=== PATIENT | female | born 1950 | race Caucasian/White ===

== ENCOUNTER 2020-10-14 12:12 | Emergency (ER) | payer MEDICARE, OTHER, SELFPAY ==
[2020-10-14 12:20] VITALS: BP 125/53; PULSE 59; RESP 20; TEMP 36.8; O2SAT 100
[2020-10-14 12:35] VITALS: BP 125/53; PULSE 59; RESP 20; TEMP 36.8; O2SAT 100
--- NOTE | 2020-10-14 12:35 | ED.FEMALEGU ---
HPI - Female Genitourinary General Chief complaint: Urogenital-Female Stated complaint: poss uti Time Seen by Provider: 10/14/20 12:40 Source: patient, RN notes reviewed and old records reviewed Mode of arrival: ambulatory Limitations: no limitations History of Present Illness HPI Narrative: 70 year old female presents to [facility] with complaints of painful urination, urinary frequency and decreased output since Sunday. Patient reports that she has been taking Pyridium for her dysuria without resolution in her symptoms. Patient denies any supra pubic pain or any CVA tenderness. She states no known fevers, chills or sweats. reports no vaginal discharge or any vaginal itching, no concern for STD exposure. Patient reports past history of urinary tract infections. MD elicited complaint: dysuria, UTI and other (frequency with decreased output) Related Data Home Medications Medication Instructions Recorded Confirmed amlodipine 10/14/20 atenolol 10/14/20 buspirone mg 10/14/20 calcitriol 10/14/20 cetirizine mg 10/14/20 conjugated estrogens [Premarin] mg 10/14/20 eszopiclone mg 10/14/20 lisinopril 10/14/20 methocarbamol mg 10/14/20 oxycodone-acetaminophen 10/14/20 Allergies Allergy/AdvReac Type Severity Reaction Status Date / Time cephalexin Allergy Unknown Unknown Verified 10/14/20 12:29 erythromycin base Allergy Unknown Unknown Verified 10/14/20 12:29 nitrofurantoin Allergy Unknown anaphylactic Verified 02/16/17 21:20 reaction Penicillins Allergy Unknown Unknown Verified 10/14/20 12:29 pentazocine Allergy Unknown Unknown Verified 10/14/20 12:29 propoxyphene Allergy Unknown Unknown Verified 10/14/20 12:29 NICKELSULFATE Allergy Unknown Unknown Uncoded 10/14/20 12:29 Review of Systems Review of Systems: CONSTITUTIONAL: Denies fever, chills, or sweats. EYES: Denies visual changes, redness, or discharge. ENT: Denies rhinorrhea, congestion, sore throat, or otalgia. CARDIOVASCULAR: Denies chest pain, palpitations, or edema. RESPIRATORY: Denies cough or dyspnea. GASTROINTESTINAL: Denies abdominal pain, nausea, vomiting, or diarrhea. GENITOURINARY: Positive dysuria or hematuria. SKIN: Denies rash or itching. MUSCULOSKELETAL: Denies back pain, joint pain, or myalgia. NEUROLOGIC: Denies headache, numbness, or weakness. PSYCHIATRIC: Positive history of anxiety or depression. All systems reviewed & are unremarkable except as noted in HPI and below PMFSH Past Medical History Medical History (Updated 10/16/20 @ 08:50 by Ivanna Mc NP) Fracture of right ankle Hyperlipidemia Hypertension Osteoporosis Post-menopausal UTI (urinary tract infection) Surgical History Surgical History (Updated 10/16/20 @ 08:44 by Ivanna Mc NP) History of hysterectomy History of lumbar fusion Hx of cholecystectomy Family History Family History Mother Hypertension Cerebrovascular accident Family history of coronary artery disease Grandparent Family history of malignant neoplasm of breast Father Family history of coronary artery disease Other Diabetes mellitus Family history of alcoholism Family history of anemia Family history of blood dyscrasia Family history of cardiovascular disease Family history of chronic obstructive pulmonary disease Family history of congestive heart failure Family history of osteoporosis Social History Social History (Updated 10/16/20 @ 08:43 by Ivanna Mc NP) Smoking status: Never smoker Second hand tobacco smoke exposure: No Alcohol intake: never Substance use: never Living arrangements: with family Gender identity (if verbalized by the patient): Female Comments At time of signature, agree with nursing past medical, surgical, social and family history. There is no relevant family history pertinent to the presenting complaint Exam Narrative: GENERAL: Well-appearing
== END 2020-10-14 13:12 | disposition home or self-care (01) ==
PROVIDERS: Emergency Provider Registered Nurse
DX: N39.0 Urinary tract infection, site not specified (principal); E78.5 Hyperlipidemia, unspecified; I10 Essential (primary) hypertension; M81.0 Age-related osteoporosis without current pathological fracture
CPT/HCPCS: 81003; 87077; 87086; 87186; 99203; G0463

== ENCOUNTER 2020-11-16 10:36 | Emergency (ER) | payer MEDICARE, OTHER, SELFPAY ==
[2020-11-16 10:42] VITALS: BP 138/67; PULSE 82; RESP 18; TEMP 36.9; O2SAT 99
--- NOTE | 2020-11-16 11:14 | ED.URI ---
HPI - URI/Sore Throat General Chief Complaint: Upper Respiratory Infection Stated Complaint: Congestion Time Seen by Provider: 11/16/20 11:05 Source: patient and RN notes reviewed Mode of arrival: ambulatory Limitations: no limitations History of Present Illness HPI Narrative: Patient presents today complaining of 3-day history of nasal congestion, fatigue, facial pressure. Patient is, I need something for my facial pressure. Denies cough, fever, sore throat, ear pain. She has been taking Tylenol Cold and flu with some mild relief. States her symptoms have been improving since onset. She had COVID-19 in February. MD elicited complaint: nasal congestion and sinus pain Related Data Home Medications Medication Instructions Recorded Confirmed atenolol 25 mg PO DAILY 10/14/20 11/16/20 cetirizine 10 mg PO DAILY 10/14/20 11/16/20 eszopiclone 3 mg PO DAILY 10/14/20 11/16/20 lisinopril 40 mg PO DAILY 10/14/20 11/16/20 oxycodone-acetaminophen 1 tablet PO Q4H PRN 10/14/20 11/16/20 conjugated estrogens [Premarin] 0.9 mg PO DAILY 11/16/20 11/16/20 cyclobenzaprine 10 mg PO TID PRN 11/16/20 11/16/20 Allergies Allergy/AdvReac Type Severity Reaction Status Date / Time cephalexin Allergy Unknown Unknown Verified 11/16/20 11:04 erythromycin base Allergy Unknown Unknown Verified 11/16/20 11:04 nitrofurantoin Allergy Unknown anaphylactic Verified 11/16/20 11:04 reaction Penicillins Allergy Unknown Unknown Verified 11/16/20 11:04 pentazocine Allergy Unknown Unknown Verified 11/16/20 11:04 propoxyphene Allergy Unknown Unknown Verified 11/16/20 11:04 NICKELSULFATE Allergy Unknown Unknown Uncoded 10/14/20 12:29 Review of Systems Review of Systems: CONSTITUTIONAL: Denies body aches, fever, chills, or sweats.+ Fatigue EYES: Denies visual changes, redness, or discharge. ENT: Denies rhinorrhea, sore throat, or otalgia.+ Congestion, facial pressure CARDIOVASCULAR: Denies chest pain, palpitations, or edema. RESPIRATORY: Denies cough or dyspnea. GASTROINTESTINAL: Denies abdominal pain, nausea, vomiting, or diarrhea. GENITOURINARY: Denies dysuria or hematuria. SKIN: Denies rash, itching, or wounds. MUSCULOSKELETAL: Denies back pain, joint pain, or myalgia. NEUROLOGIC: Denies headache, numbness, tingling, or weakness. PSYCH: Denies depression or anxiety. [facility] Past Medical History Medical History (Updated 11/16/20 @ 20:01 by Aleyda Jones, [facility], ) COVID-19 Fracture of right ankle Hyperlipidemia Hypertension Osteoporosis Post-menopausal UTI (urinary tract infection) Surgical History Surgical History (Updated 10/16/20 @ 08:44 by Ivanna Mc NP) History of hysterectomy History of lumbar fusion Hx of cholecystectomy Family History Family History Mother Hypertension Cerebrovascular accident Family history of coronary artery disease Grandparent Family history of malignant neoplasm of breast Father Family history of coronary artery disease Other Diabetes mellitus Family history of alcoholism Family history of anemia Family history of blood dyscrasia Family history of cardiovascular disease Family history of chronic obstructive pulmonary disease Family history of congestive heart failure Family history of osteoporosis Social History Social History (Updated 10/16/20 @ 08:43 by Ivanna Mc NP) Smoking status: Never smoker Second hand tobacco smoke exposure: No Alcohol intake: never Substance use: never Gender identity (if verbalized by the patient): Female Comments At time of signature, I have reviewed and agree with nursing past medical, surgical, social and family history unless otherwise noted. Please see nursing chart for further information. There is no relevant family history pertinent to the presenting complaint Exam Narrative: GENERAL: Well-appearing, well-nourished, and in no acute distress. HEAD: N
== END 2020-11-16 11:18 | disposition home or self-care (01) ==
PROVIDERS: Emergency Provider Nurse Practitioner
DX: J32.9 Chronic sinusitis, unspecified (principal); E78.5 Hyperlipidemia, unspecified; I10 Essential (primary) hypertension; M81.0 Age-related osteoporosis without current pathological fracture; Z86.16 Personal history of COVID-19
CPT/HCPCS: 99211; G0463

== ENCOUNTER 2024-08-27 09:54 | Emergency (ER) | payer MEDICARE, OTHER, SELFPAY ==
[2024-08-27 10:00] VITALS: BP 163/79; PULSE 97; RESP 16; TEMP 36.8; O2SAT 97
--- OUTSIDE RECORDS SUMMARY | 2024-08-27 10:04 | XMS_ITS | Continuity of Care Document ---
Author Organization [facility] Address [address] [place] [address] Phone Care Team Providers Care Liver Trimmer Name Role Phone Kasia RANGEL MD, Marcelo Dunn Unavaila ble Advance Directives Directive Yes / No Effective Date File Name No Information Encounters Encounter Description Practice Location Reason(s) For Visit Diagnoses Date Provider Providers Copied on Encounter [facility], [address], [id number], [place] tel:[phone] [facility] No Information Kasia Carr er. [address], [address] [facility] [address] [facility] [address], [place], [place], [id number] , [place]. tel: [phone] Family History Family Member Type Diagnosis Age At Onset No Information Payers Payer name Insurance type Covered libertarian ID Authoriza tion(s) No Information Social History Type Description Quantity Date Captured Comments Sex Female Smoking Status No Information Chief Complaint And Reason For Visit No Information Reason For Referral Reason For Referral No Information History Of Present Illness Encounter Date Complaint History Of Prese nt Illness No Information Functional Status Date Functional Assessmen t No Information Instructions Date Instruction Additional Infor mation No Information Assessments Type Assessment Date No Information Patient Care Teams Name Effective Dates (start - stop) Status Members No Information
--- OUTSIDE RECORDS SUMMARY | 2024-08-27 10:04 | XMS_ITS | Clinical Summary ---
Author Organization [facility] Address [address] [place] [address] Care Team Providers Care Continuous Mining Operator Name Role Phone Padmini Irby APN, SLEEVE SETTER Primary Care Provider Padmini Irby APN, SLEEVE SETTER Unavailable [phone] Allergies Active Allergy Reactions Criticality Noted Date Comments Cephalexin Hives,Other (see Comments) High 06/30/2019 Propoxyphene Unknown 11/20/2018 Erythromycin Unknown 11/20/2018 Nitrofurantoin Hives,Shortness of Breath High 12/29/2019 Penicillins Rash 11/20/2018 Rash,hives, Pineapple Swelling High 06/14/2018 Pentazocine Other (see Comments) Low 12/29/2019 Reaction: Muscle Spasm, Medications furosemide (LASIX) 40 MG Tablet Take 40 mg by mouth daily. Active amLODIPine (NORVASC) 2.5 MG Tablet Take 10 mg by mouth daily. Active calcitRIOL (ROCALTROL) 0.25 MCG Capsule Take 0.25 mcg by mouth daily. Active estrogens, conjugated, (PREMARIN) 0.9 MG Tablet Take 0.9 mg by mouth daily. Active lisinopril (PRINIVIL, ZESTRIL) 40 MG Tablet Take 40 mg by mouth daily. Active methadone (DOLOPHINE) 10 MG Tablet Take 10 mg by mouth every 4 hours as needed. Active Cyclobenzaprine HCl (FLEXERIL PO) Take by mouth. Activ e ciclopirox (PENLAC) 8 % Solution Apply a thin even layer over the nail once daily 6.6 mL 3 0 Active Additional Information Patient not taking.Reported on 12/29/2019 Active Problems No known active problems Family History Relation Name Status Comments Father heart disease Maternal Grandfather Maternal Grandmother Mother heart disease Paternal Grandfather Paternal Grandmother Social History Tobacco Use Types Packs/Day Years Used Date Smoking Tobacco: Never Smokeless Tobacco: Never Alcohol Use Standard Drinks/Week Comments Not Currently 0 (1 standard drink = 0.6 oz pur e alcohol) Comments No Sex and Gender Information Value Date Recorded Sex Assigned at Not on file Legal Sex Female 11:47 PM CDT Gender Identity Not on file Sexual Orientation Not on file Last Filed Vital Signs Vital Sign Reading Time Taken Comments Blood Pressure 134/72 12/29/2019 10:09 AM ENGINEER EXHAUSTER Pulse 92 12/29/2019 10:09 AM ENGINEER EXHAUSTER Temperature 36.2 C (97.1 F) 12/29/2019 10:09 AM ENGINEER EXHAUSTER Respiratory Rate 16 12/29/2019 10:09 AM ENGINEER EXHAUSTER Oxygen Saturation 98% 12/29/2019 10:09 AM ENGINEER EXHAUSTER Inhaled Oxygen Concentration - - Weight 50.9 kg (112 lb 4.8 oz) 12/29/2019 10:09 AM ENGINEER EXHAUSTER Height 160 cm (5' 3) 12/29/2019 10:09 AM ENGINEER EXHAUSTER Body Mass Index 19.89 12/29/2019 10:09 AM ENGINEER EXHAUSTER Plan of Treatment Health Maintenance Due Date Last Done Comments Hepatitis C Virus (HCV) Screening 1950 TdaP Immunization 1950 Cologuard 09/05/1995 Immunochemical Fecal Occult Blood 09/06/2019 09/05/2018 SARS-COV-2 Immunization ( season) 2023 02/10/2021, 01/13/2021 Influenza Immunization (#1) 2024 Respiratory Syncytial Virus (RSV) Immunization (Adult) (1 - 1-dose 75+ series) 2025 Colonoscopy 12/11/2028 12/11/2018 Colorectal Cancer Screening 12/11/2028 DEXA Bone Density Discontinued 07/22/2015 Mammogram Discontinued 07/22/2015 Zoster Immunization Completed 06/18/2018, 06/07/2018, 11/15/2017, Additional history exists Pneumococcal Immunization (50+ years) Completed 10/06/2019, 08/12/2016, 02/13/2012 Pneumococcal Immunization Combined Discontinued 10/06/2019, 08/12/2016, 02/13/2012 Hepatitis B Immunization Aged Out No longer eligible based on patient's age to complete this topic Human Papillomavirus (HPV) Immunization Aged Out No longer eligible based on patient's age to complete this topic Meningococcal Immunization (ACWY) Aged Out No longer eligible based on patient's age to complete this topic Rotavirus Immunization Aged Out No lo nger eligible based on patient's age to complete this topic Procedures Procedure Name Priority Date/Time Associated Diagnosis Comments [facility] BONE DENSITOMETRY AXIAL SKELETON Routine 07/22/2015 9:47 AM CDT Osteoporosis [facility] SCREENING BILATERAL DIGITAL W CAD Routine 07/22/2015 9:16 AM CDT Visit for screening mammogram from Last 3 Months or Most Recently Relevant to Health Maintenance Results * [facility] BONE DENSITOMETRY AXIAL SKELETON (07/22/2015 9:47 AM CDT) Anatomical Region Laterality Modality BODY N/A Other 07/22/2015 12:5 7 PM CDT Impressions 07/22/2015 1:00 PM CDT IMPRESSION: Low bone mass which is not statistically changed since the prior study. Bone mineral density: Normal (T-score above or = -1.0) Low bone mass (T-score between -1.0 and -2.5) replaces the previously used term osteopenia Osteoporosis (T-score = or below -2.5) Medical evaluation for secondary causes of low bone mineral density may be appropriate. FRAX is a World Health Organization validated fracture risk assessment tool that calculates a person's 10 year probability of a major osteoporosis related fracture and hip fracture. According to the National Osteoporosis Foundation guidelines, postmenopausal women and men age 50 or older with low bone mass and a 10 year probability of a major osteoporosis related fracture = or greater than 20% or a 10 year probability of a hip fracture = or greater than 3% should be considered for treatment. For further information, including treatment recommendations, please refer to the 2013 ISCD Official Positions (http://www.iscd.org) and the NOF's Clinician's Guide to Prevention and Treatment of Osteoporosis (http://www.nof.org/professionals/clinical-guidelines) Narrative 07/22/2015 1:00 PM CDT EXAMINATION: DXA Bone Density HISTORY: 65 year old postmenopausal female with given history of menopause at age 38. Current Height: 65 inches Maximum Height: 65 inches Weight: 1 out of 3 pounds RISK FACTORS: Left hip and ankle fracture and left wrist fracture from trauma. Frontal history of hip fracture. 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 No history of joint arthritis, glucocorticoid use, smoking or parts counterman antacid use. 2 falls in the past year. 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 (S/N [id number]) FINDINGS: Forearm: BMD in the radius 33% is 0.85 g/yp3U-znirs is 0.0 Left Hip Current Total BMD is 0.708 g/uv8D-trdom is -2.4 Most recent prior Total BMD was 0.702 g/cm2 There has been a 0.9% increased in BMD which is not statistically significant. Current femoral neck BMD is 0.734 g/ku4T-oyiju is -2.2 THIS IS AN ELECTRONICALLY VERIFIED REPORT 07/22/2015 12:57 PM: Tee Dinero M.D. Radiologist JACQUELINE:jacqueline IWONA Procedure Note Diego Cabral MD - 07/22/2015 EXAMINATION: DXA Bone Density HISTORY: 65 year old postmenopausal female with given history of menopause at age 38. Current Height: 65 inches Maximum Height: 65 inches Weight: 1 out of 3 pounds RISK FACTORS: Left hip and ankle fracture and left wrist fracture from trauma. Frontal history of hip fracture. 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 No history of joint arthritis, glucocorticoid use, smoking or parts counterman antacid use. 2 falls in the past year. 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 Current femoral neck BMD is 0.734 g/aj4F-fvjar is -2.2 THIS IS AN ELECTRONICALLY VERIFIED REPORT 07/22/2015 12:57 PM: Tee Dinero M.D. Radiologist JACQUELINE:jacqueline IWONA IMPRESSION: Low bone mass which is not statistically changed since the prior study. Bone mineral density: Normal (T-score above or = -1.0) Low bone mass (T-score between -1.0 and -2.5) replaces the previously used term osteopenia Osteoporosis (T-score = or below -2.5) Medical evaluation for secondary causes of low bone mineral density may be appropriate. FRAX is a World Health Organization validated fracture risk assessment tool that calculates a person's 10 year probability of a major osteoporosis related fracture and hip fracture. According to the National Osteoporosis Foundation guidelines, postmenopausal women and men age 50 or older with low bone mass and a 10 year probability of a major osteoporosis related fracture = or greater than 20% or a 10 year probability of a hip fracture = or greater than 3% should be considered for treatment. For further information, including treatment recommendations, please refer to the 2013 ISCD Official Positions (http://www.iscd.org) and the NOF's Clinician's Guide to Prevention and Treatment of Osteoporosis (http://www.nof.org/professionals/clinical-guidelines) Cindy Conway APN IMG DEXA ORDERABLES Final Result * [facility] SCREENING BILATERAL DIGITAL W CAD (07/22/2015 9:16 AM CDT) Anatomical Region Laterality Modality breast Bilateral Mammography 07/22/2015 9:03 AM CDT Narrative 07/23/2015 7:25 AM CDT - [facility] SCREENING BILATERAL DIGITAL W CAD BILATERAL DIGITAL SCREENING MAMMOGRAM WITH CAD WITH MEDIOLATERAL OBLIQUE CRANIOCAUDAL: 07/22/2015 The study was acquired using digital technology and interpreted from soft copy. Current study was also evaluated with ICAD version 7.2. CLINICAL: Routine screening. Patient has no complaints. No personal history of cancer. No family history of breast cancer. COMPARISONS: Comparison is made to exams dated: 12/01/2013, 11/29/2012, 10/10/2011, and 05/31/2010 [facility]. BREAST TISSUE:The tissue of both breasts is extremely dense, which lowers the sensitivity of mammography. FINDINGS: No significant masses, calcifications, or other findings are seen in either breast. There has been no significant interval change. IMPRESSION: BI-RAD 1 NEGATIVE There is no mammographic evidence of malignancy. A 1 year screening mammogram is recommended. The patient has been or will be contacted. The patient will be entered into a reminder system with a target due date of 1 year for her next screening exam. Electronically signed by: Jimbo saeed/bright:07/22/2015 10:05:50 Manager Linux: Oriana Melo(Feliz), [facility] letter sent: Normal Exam Reading location: [facility] BI-RADS: 1 Negative Procedure Note Jimbo Lomeli MD - 07/23/2015 - [facility] SCREENING BILATERAL DIGITAL W CAD BILATERAL DIGITAL SCREENING MAMMOGRAM WITH CAD WITH MEDIOLATERAL OBLIQUE CRANIOCAUDAL: 07/22/2015 The study was acquired using digital technology and interpreted from soft copy. Current study was also evaluated with ICAD version 7.2. CLINICAL: Routine screening. Patient has no complaints. No personal history of cancer. No family history of breast cancer. COMPARISONS: Comparison is made to exams dated: 12/01/2013, 11/29/2012, 10/10/2011, and 05/31/2010 [facility]. BREAST TISSUE:The tissue of both breasts is extremely dense, which lowers the sensitivity of mammography. FINDINGS: No significant masses, calcifications, or other findings are seen in either breast. There has been no significant interval change. IMPRESSION: BI-RAD 1 NEGATIVE There is no mammographic evidence of malignancy. A 1 year screening mammogram is recommended. The patient has been or will be contacted. The patient will be entered into a reminder system with a target due date of 1 year for her next screening exam. Electronically signed by: Jimbo Lomeli M.D. bs/dianarad:07/22/2015 10:05:50 Manager Linux: Oriana Melo(R), [facility] letter sent: Normal Exam Reading location: [facility] BI-RADS: 1 Negative Cindy M Man CALZADA IMG MAMMO ORDERABLES Final Result from Last 3 Months or Most Recently Relevant to Health Maintenance Insurance MEDICARE [employer] MEDICARE [facility] [employer] Care Teams Continuous Mining Operator Relationship Specialty Start Date End Date Padmini Irby APN SLEEVE SETTER [id number] [address] PCP - General Certified Nurse Practitioner 02/07/21 Padmini Irby APN SLEEVE SETTER [id number] [address] Certified Nurse Practitioner 02/07/21
--- OUTSIDE RECORDS SUMMARY | 2024-08-27 10:05 | XMS_ITS | Encounter Summary ---
Author Organization [facility] Address [address] [address] Care Team Providers Care Print Color Operator Name Role Phone Cindy Conway MAINTENANCE MILLWRIGHT Primary Care Provider [phone] Elsa Aquino MD Primary Care Provider + Cindy Conway MAINTENANCE MILLWRIGHT Primary Care Provider [phone] Cindy Conway MAINTENANCE MILLWRIGHT Primary Care Provider [phone] Cindy Conway MAINTENANCE MILLWRIGHT Primary Care Provider [phone] Cindy Conway MAINTENANCE MILLWRIGHT Primary Care Provider [phone] Mallika Garcia MD Primary Care Provider [phone] Mary Nunes MD Unavailable +[phone] Johnson Santiago MD Unavailable [phone] Gagandeep Youngblood MD Unavailable [phone] Padmini Irby MAINTENANCE MILLWRIGHT Primary Care Provider [phone] Giuliana Power MD Unavailable +- [phone] Santos Patterson MD Unavailable [phone] Mary Nunes MD Unavailable +[phone] Butch Milligan MD Unavailable + [phone] Patrick Lawson MD Unavailable [phone] Scott Esqueda MD Unavailable [phone] Johnson Burnett MD Unavailable Rajeev Khan MD Unavailable [phone] Nirmala Garza NP Primary Care Provider [phone] Arielle Greenwood MD, Jasiel Johns Unavailable [phone] No, Physician Primary Care Provider Encounter Details Date Type Department Care Team (Late st Contact Info) Description 11/19/2012 Orders Only [facility] [place] Health Information Management [address] [place] [address] Scanning, Provider Social History Tobacco Use Types Packs/Day Years Used Date Smoking Tobacco: Never Assessed Comments Unknown Sex and Gender Information Value Date Recorded Sex Assigned at Not on file 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 Gender Identity Not on file Sexual Orientation Not on file documented as of this encounter Plan of Treatment Not on file documented as of this encounter Procedures Procedure Name Priority Date/Time Associated Diagnosis Comments GI - RESULT 11/19/2012 documented in this encounter Results * GI - RESULT (11/19/2012) Anatomical Region Laterality Modality Other us Provider Scanning Final Result documented in this encounter Visit Diagnoses Not on filedocumented in this encounter Care Teams Print Color Operator Relationship Specialty [place] [address] [address] PCP - General 05/12/16 08/15/16 Elsa Aquino MD [address] [place] [address] PCP - General 03/28/16 05/11/16 [place] [address] [address] PCP - General 08/24/15 03/27/16 [place] [address] [address] PCP - General 07/20/15 08/23/15 Cindy Conway, MAINTENANCE MILLWRIGHT [address] [address] PCP - General 04/02/09 07/19/15 Cindy Conway, MAINTENANCE MILLWRIGHT [address] [address] PCP - General Internal Medicine 08/16/16 10/22/17 [place] [address] [address] PCP - General 10/23/17 10/25/17 [place] [address] [address] PCP - General Family Medicine 10/26/17 08/29/21 Nirmala Garza, KYM [address] [address] PCP - General Nurse Practitioner 08/30/21 07/20/24 No, Physician PCP - General 07/21/24 [place] [address] [address] Referring Physician Endocrinology 10/26/17 08/12/18 [place] [address] [address] Surgeon Orthopedic Surgery 10/26/17 12/19/21 [place] [address] [facility] [address] [place] [address] Consulting Physician Nephrology 10/26/17 [place] [address] [facility] [address] [place] [address] Referring Physician Dermatology 10/26/17 [place] [address] [facility] [address] [place] [address] Referring Physician Pain Management 10/26/17 [place] [address] [facility] [address] [place] [address] Referring Physician Endocrinology 11/13/17 11/13/17 [place] [address] [facility] [address] [place] [address] Consulting Physician Endocrinology 08/13/18 12/19/21 [place] [address] [facility] [address] [place] [address] Medical Oncologist/Fabric Inspector Hematology and Oncology 04/28/19 12/19/21 [place] [address] [facility] [address] [place] [address] Consulting Physician Medical Oncology 12/05/19 [place] [address] [facility] [address] [place] [address] Anesthesiologist Anesthesiology 12/10/19 12/19/21 Rajeev Khan MD [address] [place] [address] [address] [facility] [facility] [address] [place] [address] Surgeon Orthopedic Surgery 04/15/20 12/19/21 Jasiel [place]zmán [place] [address] [facility] [address] [place] [address] Consulting Physician Orthopedic Surgery 12/20/21 documented as of this encounter
--- OUTSIDE RECORDS SUMMARY | 2024-08-27 10:05 | XMS_ITS | Encounter Summary ---
Author Organization [facility] Healthcare Address [address] [place] [address] Care Team Providers Care Host Hostess Name Role Phone Johnson Santiago MD Unavailable +[phone] Gagandeep Youngblood MD Unavailable [phone] Padmini Irby NP Primary Care Provider [phone] Giuliana Power MD Unavailable [phone]- [phone] Santos Patterson MD Unavailable +[phone] Butch Milligan MD Unavailable +[phone] Patrick Lawson MD Unavailable [phone] Scott Esqueda MD Unavailable [phone] Johnson Burnett MD Unavailable [phone] Rajeev Khan MD Unavailable [phone] Nirmala Garza ODD PIECE CHECKER Primary Care Provider [phone] Arielle Greenwood MD, Jasiel Johns Unavailable +- [phone] No, Physician Primary Care Provider [phone] Reason for Visit * Reason Onset Date Comments Scheduling Appointments 05/19/2020 Dexa Ashwin t confirmed Encounter Details Date Type Department Care Team (Late st Contact Info) Description 05/19/2020 Telephone [facility] [address] [place] [address] Iliana Chavez RT Scheduling Appointments (Dexa Appt confirmed ) Social History Tobacco Use Types Packs/Day Years Used Date Smoking Tobacco: Former Cigarettes Q uit: 2014 Smokeless Tobacco: Never Comments:off and on smoker f or 40 years. pack per day Alcohol Use Standard Drinks/Week Comments No 0 (1 standard drink = 0.6 oz pur e alcohol) AUDIT-C Answer Date Recorded Q1: How often do you have a drink containing alc ohol? 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 Author [facility] No Rayne Green RN Note: Patient will establish a comfort-function goal and identify the pain level that will allow the patient to perform desired activities and achieve an acceptable quality of life. documented as of this encounter Visit Diagnoses Not on filedocumented in this encounter Care Teams Host Hostess Relationship Specialty Start Date End Date Padmini Irby NP PCP - General Family Medicine 10/26/17 08/29/21 [place] [address] [place] [address] PCP - General Nurse Practitioner 08/30/21 07/20/24 No, Physician PCP - General 07/21/24 Johnson Santiago MD Surgeon Orthopedic Surgery 10/26/17 12/19/21 Gagandeep Youngblood MD Consulting Physician Nephrology 10/26/17 [place] [address] [facility] [address] [place] [address] Referring Physician Dermatology 10/26/17 [place] [address] [facility] [address] [place] [address] Referring Physician Pain Management 10/26/17 [place] [address] [facility] [address] [place] [address] Consulting Physician Endocrinology 08/13/18 12/19/21 [place] [address] [facility] [address] [place] [address] Medical Oncologist/Bb Shot Packer Hematology and Oncology 04/28/19 12/19/21 [place] [address] [facility] [address] [place] [address] Consulting Physician Medical Oncology 12/05/19 [place] [address] [facility] [address] [place] [address] Anesthesiologist Anesthesiology 12/10/19 12/19/21 Rajeev Khan MD [address] [place] [address] [address] [facility] [facility] [address] [place] [address] Surgeon Orthopedic Surgery 04/15/20 12/19/21 Jasiel Guzmán [place]., [place] [address] [facility] [address] [place] [address] Consulting Physician Orthopedic Surgery 12/20/21 documented as of this encounter
--- OUTSIDE RECORDS SUMMARY | 2024-08-27 10:05 | XMS_ITS | Clinical Summary ---
Author Organization [facility] Address [address] [place] [address] Care Team Providers Care Director Apparel Name Role Phone Gagandeep Youngblood MD Unavailable [phone] Giuliana Power MD Unavailable [phone] Santos Patterson MD Unavailable [phone] Scott Esqueda MD Unavailable [phone] Arielle Greenwood MD, Jasiel Johns Unavailable [phone] No, Physician Primary Care Provider Allergies Active Allergy Reactions Criticality Noted Date Comments Cephalexin Hives,Other (See comments) High 0 Erythromycin Stomach upset,Vomiting Low Nitrofurantoin Hives,Shortness of breath High Penicillin V Other (See comments) Low 06/30/2019 Penicillins Hives High Pentazocine Other (See comments) Low 06/30/2019 Medications eszopiclone (LUNESTA) 3 mg tablet 04/10/19 21 Active calcium carbonate-vitamin D3 1500 mg (600 mg elemental) -200 units per tablet Take 1 tablet by mouth daily 30 tablet 11 12/21/19 23 Active calcitRIOL (ROCALTROL) 0.25 mcg capsule Take 1 capsule (0.25 mcg total) by mouth daily 90 capsule 3 12/21/19 23 Active ergocalciferol (VITAMIN D) 50,000 unit capsule Take 1 capsule (50,000 Units total) by mouth once a week 12 capsule 3 12/21/19 23 Active ipratropium (ATROVENT) 21 mcg (0.03 %) nasal sprayIndications:C hronic rhinitis Administer 2 sprays into each nostril every 12 (twelve) hours 30 mL 11 03/12/19 25 Active acyclovir (ZOVIRAX) 5 % ointment Apply topically 6 (six) times a day Space applications every 3 hours. 15 g 04/04/19 25 Active dilTIAZem CD/XR/XT (CARDIZEM CD,DILACOR XR) 120 mg 24 hr capsuleIndications :Benign hypertension with CKD (chronic kidney disease) stage III (HCC),Essential hypertension Take 1 capsule (120 mg total) by mouth daily 90 capsule 04/04/19 25 026 Active estrogens, conjugated, (PREMARIN) 0.9 mg tablet Take 1 tablet (0.9 mg total) by mouth daily 90 tablet 04/04/19 026 Active lisinopriL (PRINIVIL,ZESTRIL) 40 mg tablet Take 1 tablet (40 mg total) by mouth daily 90 tablet 04/04/19 25 Active ondansetron ODT (ZOFRAN-ODT) 8 mg disintegrating tabletIndications: Nausea Take 1 tablet (8 mg total) by mouth every 8 (eight) hours as needed for nausea or vomiting 20 tablet 04/04/19 25 Active rizatriptan (Maxalt) 10 mg tablet Take 1 tablet po at the onset of a migraine. May repeat after 2 hours. Do NOT exceed 30 mg in 24 hours. Limit to less than 10 doses monthly. 20 tablet 04/04/19 25 Active cyclobenzaprine (FLEXERIL) 5 mg tablet Take 1 tablet (5 mg total) by mouth 2 (two) times a day as needed 03/06/19 25 Active oxyCODONE-acetamin ophen (PERCOCET) 10-325 mg per tablet Take 1 tablet by mouth every 6 (six) hours 03/29/19 25 Active phenazopyridine (PYRIDIUM) 200 mg tablet TAKE 1 TABLET BY MOUTH THREE TIMES DAILY NEEDED FOR PAIN FOR 6 DOSES 03/16/19 25 Active sulfamethoxazole-t rimethoprim (BACTRIM DS) 800-160 mg per tablet Take 1 tablet by mouth every 12 (twelve) hours 03/16/19 25 Active Active Problems Problem Noted Date Diagnosed Date Chronic rhinitis 03/12/2024 Assessment & Plan (03/12/2024 9:08 AM RECEIVABLE EXECUTIVE): Nasal saline spray (Simply saline, Little Remedies, [place], [place]) 2 second sprays or 2 squeezes into each nostril while looking down over the sink, do not need to sniff in. Followed by Ipratropium 2 sprays into each nostril while looking down over the sink, do not sniff in or blow nose after use for at least 30 minutes as much as four times daily Sensorineural hearing loss ( SNHL) of left ear with restricted hearing of right ear 09/13/2022 Assessment & Plan (03/13/2023 11:38 AM RECEIVABLE EXECUTIVE): Avoid ear cleaning techniques Hearing test, imaging based on hearing test results Assessment & Plan (09/13/2022 1:52 PM CDT): Avoid ear cleaning techniques Hearing test [facility] Bilateral impacted cerumen 09/13/2022 Assessment & Plan (09/10/2023 9:29 AM CDT): Avoid ear cleaning techniques Follow up in 6 months for ear check Assessment & Plan (09/13/2022 1:52 PM CDT): Avoid ear cleaning techniques Hearing test [facility] History of COVID-19 10/19/2020 Assessment & Plan (10/19/2020 10:37 AM CDT): She would like her COVID antibody titers to be checked today. I did discuss the current recommendation from the CDC to get her COVID vaccine 90 days after having the virus. 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 Biceps tendinitis of right upper extremity 01/15 Impingement syndrome of right shoulder 0 [facility] (current) use of opiate analgesic 10/13 Insomnia secondary to chronic pain 10/23/2019 Chronic bilateral low back pain without sciatica 10/23/2019 Chronic pain of both shoulders 10/23/2019 Multiple joint pain 10/23/2019 History of kidney stones 10/07/2019 Urinary urgency 10/07/2019 Assessment & Plan (06/20/2023 5:10 PM CDT): Discontinued oxybutynin 5 mg and started mirabegron ER 25 mg Assessment & Plan (12/20/2022 4:50 PM RECEIVABLE EXECUTIVE): Oxybutynin 5 mg Assessment & Plan (10/07/2019 8:46 AM CDT): Urgency had improved with ciprofloxacin. Will repeat UA today and repeat course of ciprofloxacin. Recommended urology consultation as well due to her history of kidney stones. Discussed abdominal pelvis CT versus ultrasound to re-evaluate nephrolithiasis. Patient does not want CT scan she prefers to do ultrasound. Polyarthritis 10/06/2019 Assessment & Plan (10/07/2019 8:47 AM CDT): Taking Percocet p.r.n. for generalized pain. She does endorse arthritis in her hands. If she is not taking Percocet is okay to take Tylenol she would just need to make sure she is taking less than 3000 mg per day. Constipation 09/05/2018 Assessment & Plan (11/07/2018 4:30 PM CDT): Discussed importance of GI consultation as previously recommended. Assessment & Plan (09/05/2018 9:46 AM CDT): Recommended fiber supplement daily. She will need a colonoscopy for further evaluation. Moderate episode of recurrent major depressive d isorder 09/05/2018 Assessment & Plan (12/20/2022 4:44 PM RECEIVABLE EXECUTIVE): PHQ Screening PHQ-2 Total Score (If total score is 3 or more points, staff should administer the PHQ-9): 1 Assessment & Plan (10/19/2020 10:36 AM CDT): Did not start BuSpar. Taking trazodone p.r.n. for sleep. Assessment & Plan (04/16/2020 8:37 AM RECEIVABLE EXECUTIVE): See plan for anxiety. Star buspar 5 mg TID. Assessment & Plan (11/07/2018 4:30 PM CDT): She is not agreeable to medication or therapy today. -Patient denied suicidal ideation today, however discussed suicide hotline and call 911/ go to emergency department if suicidal. Assessment & Plan (09/05/2018 9:47 AM CDT): She was agreeable to start citalopram 20 mg once daily today. -Discussed potential side effects of medication including adjustment phase including dizziness, nausea, and headache. Discussed not to stop anti-depressant medications abruptly and take only as prescribed. -Patient denied suicidal ideation today, however discussed suicide hotline and call 911/ go to emergency department if suicidal. Other hemorrhoids 09/05/2018 Assessment & Plan (09/05/2018 9:49 AM CDT): Patient would like refill on her lidocaine for her hemorrhoid. Also recommended hydrocortisone suppository. Abnormal thyroid function test 08/12/2018 Assessment & Plan (10/19/2020 10:33 AM CDT): Previously under the care of endocrinology, she declined consultation in the past. Will repeat TSH today Assessment & Plan (01/06/2019 8:51 PM RECEIVABLE EXECUTIVE): Discussed importance of follow-up with endocrinology. I recommended that she follow up with Dr. Caraballo as she already has an established relationship and this is likely contributing to her weight loss. She declines and states that she is going to find another hearing therapist but does not know the physician's name. Assessment & Plan (09/05/2018 9:48 AM CDT): Discussed importance of lab work as previously ordered by her hearing therapist. Assessment & Plan (08/12/2018 5:11 PM CDT): Reviewed patient past thyroid lab results and nuclear medicine uptake and scan results and also thyroid ultrasound results Noted slightly low TSH levels along with free T4 and T3 ranges DD: Subclinical hyperthyroidism versus toxic goiter versus normal variant vs thyroiditis Currently patient off of methimazole for many weeks Recheck thyroid lab test results and further plans based on repeat labs if TSH is low will try to repeat nuclear medicine uptake and scan but if TSH is normal will continue to monitor Multinodular goiter 08/12/2018 Assessment & Plan (04/16/2020 8:37 AM RECEIVABLE EXECUTIVE): Needs endocrinology follow up. Assessment & Plan (08/12/2018 5:12 PM CDT): Reviewed recent thyroid ultrasound report and images Noted goiter with multiple small subcentimeter thyroid nodules, low suspicious No compression symptoms No criteria for FNA at this point Follow-up with repeat thyroid ultrasound and physical examination in 6-12 months Bilious vomiting without nausea 02/20/2018 Assessment & Plan (06/14/2018 11:12 AM CDT): Discussed at length that I think she would benefit from further evaluation by GI for vomiting. She also has occasional dysphagia, which further supports follow up EGD, last was in 2012 showed esophageal rings. She declines referral today. Understands risks of not investigating cause of vomiting. Will continue to address on follow up. If worsens she will contact me. Assessment & Plan (02/20/2018 8:48 PM RECEIVABLE EXECUTIVE): Discussed at length that I think she would benefit from further evaluation by GI for vomiting. She also has occasional dysphagia, which further supports follow up EGD, last was in 2012 showed esophageal rings. She declines referral today. Understands risks of not investigating cause of vomiting. Will continue to address on follow up. If worsens she will contact me. 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 Patient's anxiety has increased. Patient states she was on Xanax many years ago. Patient refuses to see psychiatry. Assessment & Plan (04/16/2020 8:18 AM RECEIVABLE EXECUTIVE): Discussed ways to relieve stress. Discussed starting buspar 5 mg TID. She is not willing to try SSRI or SNRI, even though I feel that she would really benefit from one. She wants short acting medication, but I will not prescribe her benzodiazepines. They are not a good treatment for anxiety custodial and she is also on chronic opioid therapy, which would not be safe to take concomitantly. -Patient denied suicidal ideation today, however discussed suicide hotline and call 911/ go to emergency department if suicidal. Assessment & Plan (11/07/2018 4:29 PM CDT): Discussed ways to relieve stress. She is not agreeable to start medication for anxiety. She declines counseling as well. -Patient denied suicidal ideation today, however discussed suicide hotline and call 911/ go to emergency department if suicidal. Assessment & Plan (09/05/2018 9:47 AM CDT): Discussed ways to relieve stress. She was agreeable to start citalopram 20 mg once daily today. -Discussed potential side effects of medication including adjustment phase including dizziness, nausea, and headache. Discussed not to stop anti-depressant medications abruptly and take only as prescribed. -Patient denied suicidal ideation today, however discussed suicide hotline and call 911/ go to emergency department if suicidal. Assessment & Plan (06/14/2018 11:11 AM CDT): Discussed ways to relieve stress. -Declined psychology referral today. -Declined hydroxyzine or SSRI for treatment of anxiety. Would like benzodiazepine, however do not feel comfortable prescribing for maintenance of anxiety. She is not willing to try any other medications. She is on narcotics which also puts her at high risk for respiratory depression with concomitant benzodiazepine use. -Offered psychiatry referral and she declined. -Patient denied suicidal ideation today, however discussed call 911/ go to emergency department if suicidal. Assessment & Plan (02/20/2018 8:51 PM RECEIVABLE EXECUTIVE): -Discussed ways to relieve stress. -Declined psychology referral today. -Declined hydroxyzine or SSRI for treatment of anxiety. Would like benzodiazepine, however do not feel comfortable prescribing for maintenance of anxiety. She is not willing to try any other medications. She is on narcotics which also puts her at high risk for respiratory depression with concomitant benzodiazepine use. -Offered psychiatry referral and she declined. -Patient denied suicidal ideation today, however discussed call 911/ go to emergency department if suicidal. Anemia of chronic renal failure 01/10/2018 Assessment & Plan (10/19/2020 10:34 AM CDT): Patient having every 2 week hemoglobin and hematocrit check and getting and Aranesp injections p.r.n. With nephrology. She require Zofran p.r.n. after her injections due to nausea caused from the injection Assessment & Plan (04/16/2020 8:15 AM RECEIVABLE EXECUTIVE): Patient having every 2 week hemoglobin and hematocrit check and getting and Aranesp injections p.r.n. With nephrology Assessment & Plan (11/07/2018 4:28 PM CDT): Patient having every 2 week hemoglobin and hematocrit check and getting and Aranesp injections p.r.n. With nephrology Assessment & Plan (02/20/2018 8:46 PM RECEIVABLE EXECUTIVE): Continue care with Dr. Youngblood. Vitamin D deficiency 07/03/2017 Assessment & Plan (10/19/2020 10:36 AM CDT): Will check vitamin-D level today. Continue vitamin D3 75848 units once weekly Assessment & Plan (04/16/2020 8:39 AM RECEIVABLE EXECUTIVE): Continue vitamin d supplementation. Vitamin d level ordered today. Assessment & Plan (11/07/2018 4:31 PM CDT): Reordered vitamin-D supplementation Assessment & Plan (06/14/2018 11:15 AM CDT): Vitamin D 05/2018 66 Recommend continue vitamin D3 29051 IU once weekly. Repeat annually. Assessment & Plan (02/20/2018 8:45 PM RECEIVABLE EXECUTIVE): Last vitamin D level 07/03/17 elevated at 87. Repeat 2 weeks after starting Prolia. Assessment & Plan (07/08/2017 11:07 PM CDT): Check Vitamin D level. Bone lesion 03/29/2017 Overview (11/12/2017): 04/02/2017 CT Pelvis FINDINGS: Anterior spinal fusion of L5-S1 is noted. A bone island is seen in the left iliac bone near the SI joint which is unchanged since the prior CT scan. No suspicious osteolytic or osteoblastic lesions are evident. No sacral or coccygeal fractures are noted. IMPRESSION: 1. No abnormal findings. 2. Stable bone island in the left iliac bone. 3. Anterior spinal fusion of L5-S1. Vitamin B12 deficiency 02/23/2017 Assessment & Plan (04/16/2020 8:38 AM RECEIVABLE EXECUTIVE): Vitamin b12 was ordered today Assessment & Plan (01/06/2019 8:49 PM RECEIVABLE EXECUTIVE): Vitamin b12 was ordered today, patient declined labs. Chronic left hip pain 02/01/2017 Assessment & Plan (08/30/2021 1:13 PM CDT): -completed clearance form for upcoming left hip surgery Assessment & Plan (02/25/2017 3:09 PM RECEIVABLE EXECUTIVE): Has upcoming appt with specialist-regarding surgical intervention. Stage 3a chronic kidney disease 11/23/2016 Assessment & Plan (12/20/2022 4:43 PM RECEIVABLE EXECUTIVE): Last eGFR 57 Assessment & Plan (08/30/2021 1:15 PM CDT): -continue current treatment per nephrology Assessment & Plan (10/19/2020 10:35 AM CDT): Continue follow up with Dr. Youngblood. Avoid NSAIDS. Assessment & Plan (04/16/2020 8:35 AM RECEIVABLE EXECUTIVE): Continue follow up with Dr. Youngblood. Avoid NSAIDS. Assessment & Plan (01/06/2019 8:50 PM RECEIVABLE EXECUTIVE): Continue follow up with Dr. Youngblood. Assessment & Plan (02/20/2018 8:43 PM RECEIVABLE EXECUTIVE): Renal condition is stable. Continue current treatment regimen. Continue current medications. continue regular follow up with Dr. Youngblood Renal condition will be reassessed in 6 months. Assessment & Plan (11/26/2016 11:35 AM CDT): Renal condition is newly diagnosed. Reviewed numbers with pt. . Continue current treatment regimen. Renal condition will be reassessed - plan to refer to [facility]. Benign hypertension with CKD (chronic kidney disease) stage III 09/15/2016 Overview (09/15/2016): Hypertension Assessment & Plan (04/08/2024 7:16 AM RECEIVABLE EXECUTIVE): BP Readings from Last 3 Encounters: 04/07/24 169/78 12/25/23 (!) 174/78 09/10/23 151/77 Amlodipine 10 mg, atenolol 100 mg, clonidine 0.1 mg, lisinopril 40 mg Assessment & Plan (12/20/2022 4:49 PM RECEIVABLE EXECUTIVE): Patient states her BP at home has been 170/90-210/100; pt states it will come down to 140-150/80-90; patient states in a 30 day period she is in the lower range Patient states she saw nephrology in July and received a new BP cuff Patient stopped taking HCTZ Amlodipine 10 mg, atenolol 100 mg, clonidine 0.1 mg, lisinopril 40 mg Assessment & Plan (03/22/2022 10:26 AM RECEIVABLE EXECUTIVE): -amlodipine 10 mg, atenolol 25 mg, HCTZ 12.5 mg, lisinopril 40 mg -clonidine 0.1 mg prn for BP >160/90 (max once per day Assessment & Plan (08/30/2021 1:27 PM CDT): -amlodipine 10 mg, atenolol 25 mg, HCTZ 12.5, lisinopril 40 mg -controlled -met goal of < 140/90 -encouraged patient to eat a well-balanced heart healthy diet, drink plenty of water, be active for at least 10 minutes a day, and get at least 7 hours of quality sleep daily Assessment & Plan (10/19/2020 10:34 AM CDT): Hypertension is improving with treatment. Well controlled on amlodipine 10 mg daily, atenolol 25 mg daily, hydrochlorothiazide 12.5 mg daily and lisinopril 40 mg daily Dietary sodium restriction. Regular aerobic exercise. Ambulatory blood pressure monitoring. Blood pressure will be reassessed at the next regular appointment. Assessment & Plan (04/16/2020 8:40 AM RECEIVABLE EXECUTIVE): Hypertension is improving with treatment. Continue current treatment regimen recommended taking medication daily. [place] [facility] [place] [facility] [place] sure [place] medication is there with refills- sent a year's supply 10/05/2020. 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 Dietary sodium restriction. Regular aerobic exercise. Ambulatory blood pressure monitoring. Blood pressure will be reassessed at the next regular appointment. Assessment & Plan (10/07/2019 8:49 AM CDT): Hypertension is improving with treatment. Continue current treatment regimen. Dietary sodium restriction. Regular aerobic exercise. Ambulatory blood pressure monitoring. Blood pressure will be reassessed at the next regular appointment. Assessment & Plan (04/28/2019 1:07 PM CDT): Hypertension is worsening. Continue current treatment regimen. Dietary sodium restriction. Regular aerobic exercise. Medication changes per orders. Ambulatory blood pressure monitoring. Continue lisinopril 40 mg daily, furosemide 40 mg daily, increase amlodipine from 5 mg daily to 10 mg daily. Call with BPs in 2 weeks. Blood pressure will be reassessed at the next regular appointment. Assessment & Plan (11/07/2018 4:29 PM CDT): Hypertension is worsening. Continue current treatment regimen. Dietary sodium restriction. Regular aerobic exercise. Medication changes per orders. Ambulatory blood pressure monitoring. Continue lisinopril 40 mg daily, furosemide 40 mg daily, add amlodipine 2.5 mg daily. If blood pressure still elevated in 2 weeks would increase to 5 mg daily. She will call in 2 weeks with her blood pressure measurements. Blood pressure will be reassessed at the next regular appointment. Assessment & Plan (06/14/2018 11:12 AM CDT): Hypertension is worsening. Continue current treatment regimen. Dietary sodium restriction. Regular aerobic exercise. Medication changes per orders. Ambulatory blood pressure monitoring. Continue lisinopril 40 mg daily, furosemide 40 mg daily, add amlodipine 2.5 mg daily. If blood pressure still elevated in 2 weeks would increase to 5 mg daily. She will call in 2 weeks with her blood pressure measurements. Blood pressure will be reassessed at the next regular appointment. Assessment & Plan (02/20/2018 8:41 PM RECEIVABLE EXECUTIVE): - continue lisinopril 40 mg daily and furosemide 40 mg daily for control of blood pressure. -Discussed DASH diet and diet high in fruits and vegetables and low in saturated fat. -Discussed reducing sodium in diet. -Discussed at least 30 minutes physical activity on most days. -Discussed moderate alcohol consumption and no more than 2 drinks per day for men and 1 drink per day for women. Assessment & Plan (07/08/2017 11:08 PM CDT): Hypertension is well controlled. . Continue current treatment regimen. Dietary sodium restriction. Blood pressure will be reassessed at the next regular appointment. Assessment & Plan (02/25/2017 3:08 PM RECEIVABLE EXECUTIVE): Hypertension is controlled. Has seen Dr. Rand. Started on calcitrol. Continue current treatment regimen. Blood pressure will be reassessed in 3 months. Assessment & Plan (11/26/2016 11:35 AM CDT): Hypertension is stable. . Continue current treatment regimen. Blood pressure will be reassessed at the next regular appointment. Osteoporosis 09/15/2016 Overview (05/28/2020): 11/13/2017 with elevated PTH. Consultation with endocrinology or bone specialist recommended. She will see her hearing therapist first. Repeat PTH normal. She will start Prolia. Repeat DEXA in 201905/28/2020 Her DEXA scan showed osteoporosis in the femoral neck. Her T-score is the same as it was in 2018 femoral neck was -2.7 (anything less than -2.5 indicates osteoporosis). Her hip score has improved from previous in her lumbar spine score was in osteopenia range. I would recommend treatment for her osteopenia. We have previously discussed starting Prolia, after she is complete with her dental work I would still recommend starting Prolia. She was undergoing significant dental work in the past. Please have her reach out to me when she has completed her dental work and has dental clearance and we would start Prolia. She has previously declined referral to endocrinology. She should continue her calcium and vitamin-D supplementations and weight- bearing exercise. Next bone density is due in 2022. Assessment & Plan (12/20/2022 4:43 PM RECEIVABLE EXECUTIVE): Ca with Vitamin D Weight bearing exercises Assessment & Plan (04/16/2020 8:38 AM RECEIVABLE EXECUTIVE): Awaiting dental clearance prior to starting Prolia. Continue calcium and vitamin D. Goal is to get 1200 mg elemental calcium per day in dietary sources and supplements combined Repeat DEXA ordered. Assessment & Plan (11/07/2018 4:30 PM CDT): She will follow up after her dental work is complete in cleared by dentist to start Prolia. Continue calcium and vitamin D. Vitamin D level 66 on vitamin d3 68049 IU weekly. Goal is to get 1200 mg elemental calcium per day in dietary sources and supplements combined Will check BMP, calcium, phosphorus, PTH, and vitamin D 10 days after first injection. Repeat DEXA in 2019 Assessment & Plan (06/14/2018 11:15 AM CDT): Patient has a lot of dental work planned in the next month. She will follow up after her dental work is complete in cleared by dentist to start Prolia. Continue calcium and vitamin D. Vitamin D level 66 on vitamin d3 29778 IU weekly. Goal is to get 1200 mg elemental calcium per day in dietary sources and supplements combined Will check BMP, calcium, phosphorus, PTH, and vitamin D 10 days after first injection. Repeat DEXA in 2019 Assessment & Plan (02/20/2018 8:42 PM RECEIVABLE EXECUTIVE): Continue calcium and vitamin D. Considering declining renal function patient is good candidate for Prolia injections. Discussed risks and benefits of medication. She is agreeable to start medication. Will check BMP, calcium, phosphorus, PTH, and vitamin D 10 days after first injection. Repeat DEXA in 2019 Assessment & Plan (07/03/2017 10:59 AM CDT): Was on Reclast-2016 tolerated well. Calcium with Vitamin D Assessment & Plan (11/26/2016 11:32 AM CDT): On boniva and Calcium with Vitamin D. DEXA due in 2017. Will plan to repeat then. Trochanteric bursitis of left hip 08/18/2016 Tendinitis involving left hip abductors 08/19/19 17 Spondylosis of lumbar region without myelopathy or radiculopathy 08/18/2016 Assessment & Plan (11/26/2016 11:30 AM CDT): Chronic but stable. Continue same treatment regimen. Arthralgia of hip 02/25/2016 Assessment & Plan (04/16/2020 8:19 AM RECEIVABLE EXECUTIVE): Continue regular follow up with pain management and orthopedic surgery. Diarrhea 08/19/2012 Assessment & Plan (09/05/2018 9:49 AM CDT): Encourage fiber in her diet to keep her regular. Discussed importance of Gastroenterology follow-up for further evaluation of intermittent constipation and diarrhea. Resolved Problems Problem Noted Date Diagnosed Date Resolved Date Annual physical exam 08/30/2021 023 Assessment & Plan (08/30/2021 1:36 PM CDT): -encouraged healthy eating habits, daily exercise, and increasing daily water intake. -recommended annual eye exam and biannual dental cleanings. -encouraged patient to get at least 7-10 hours of sleep daily. -will schedule AMW -next DEXA due 05/2022 -discussed Tetanus vaccine -next mammogram due 06/2022 Acute cystitis with hematuria 10/07/2019 04/15/2020 Iron deficiency anemia, unspecified 08/12/2019 04/16/2020 Assessment & Plan (10/07/2019 8:48 AM CDT): She refuses treatment for her iron deficiency anemia due to constipating side effects. Patient also had adverse reaction to IV iron infusion (extreme hypertension after infusion) Recommended for Floradix OTC, although not as strong as ferrous sulfate she is not taking anything right now for her anemia. This can be less constipating. Follow-up with hematology. Sore throat 04/28/2019 10/06/2019 Assessment & Plan (04/28/2019 1:08 PM CDT): Strep negative. Will send culture. Patient afebrile, appears well. Recommend treatment for post-nasal drip/ seasonal allergies including Flonase and saline rinses. She will continue Zyrtec. Call if not improved in the next 1-2 weeks. Blood in stool 09/05/2018 10/06/2019 Assessment & Plan (11/07/2018 4:29 PM CDT): Discussed importance of GI referral as previously recommended. Assessment & Plan (09/05/2018 9:45 AM CDT): Hemoccult-positive in clinic. Recommended GI evaluation as above. Will check complete CBC today. Weight loss 07/03/2017 04/28/2019 Assessment & Plan (01/06/2019 8:51 PM RECEIVABLE EXECUTIVE): Patient is actively losing weight. Discussed importance of endocrinology and Gastroenterology follow up and endoscopy. Patient refused. States you should be able to find out what is wrong with me Discussed this is likely multifactorial with hyperthyroidism and need for endoscopy due to her history of dysphagia, early satiety, anemia and alternating constipation/ diarrhea. Discussed importance of calorie counting, she is reluctant to record her intake or meet with a registered travel nurse. I would like to see her back in 1 week to review what she has eaten. Discussed supplements, but she cannot do supplements with whey protein or milk. Recommended chest x-ray, HIV, TB today. Patient declined labs. Also offered CA- 125/ PET scan, which patient declined. I also encouraged her to treat her depression and anxiety. Discussed with patient if weight goes less than 80 lb and she is symptomatic she may need to be admitted to the hospital for malnutrition. Assessment & Plan (11/07/2018 4:32 PM CDT): Patient is actively losing weight. Discussed importance of Gastroenterology referral in investigating cause of weight loss. Concern for carcinoma. Recommended CT abdomen pelvis today which patient is agreeable to. She states if something is abnormal on CT scan she will get a colonoscopy and endoscopy. Recommended chest x-ray, HIV, TB today. Patient declined labs. I also encouraged her to treat her depression and anxiety. Recommended patient call if continuing to lose weight. Assessment & Plan (09/05/2018 9:48 AM CDT): Patient is actively losing weight. Discussed importance of Gastroenterology referral in investigating cause of weight loss. Concern for carcinoma. Will get CBC today. Encouraged her to check her TSH levels as previously ordered by Dr. Caraballo. I also encouraged her to treat her depression and anxiety, she has been resistant in the past but is agreeable today. She will start citalopram 20 mg once daily. She will need a close clinical follow-up in the next 4 weeks for monitoring her weight. Assessment & Plan (02/20/2018 8:44 PM RECEIVABLE EXECUTIVE): Weight stable today. Encouraged high caloric intake. Migraine 11/26/2016 01/06/2019 Assessment & Plan (02/20/2018 8:44 PM RECEIVABLE EXECUTIVE): Headaches are fairly well controlled. Continue Maxalt PRN Return if worsens or fails to improve or having more frequent migraine headaches. Assessment & Plan (11/26/2016 11:33 AM CDT): Headaches are fair controlled. . Medication changes per orders. RX provided for MAXALT. BMI less than 19,adult 11/26/201603/22 Assessment & Plan (10/19/2020 10:35 AM CDT): Weight is stable. She has gained 6 lb since her last office visit. Assessment & Plan (04/16/2020 8:19 AM RECEIVABLE EXECUTIVE): Weight remains stable. Discussed importance of caloric intake. Assessment & Plan (10/07/2019 8:48 AM CDT): Weight remains stable. Discussed importance of caloric intake. Assessment & Plan (01/06/2019 8:50 PM RECEIVABLE EXECUTIVE): Discussed importance of caloric intake. Assessment & Plan (11/07/2018 4:28 PM CDT): Weight is down 3 lb. Recommended proper caloric intake. Assessment & Plan (07/08/2017 11:10 PM CDT): Weight down 4 lbs. BMI below normal range. Addressed importance of proper caloric intake. Assessment & Plan (05/20/2017 9:51 AM CDT): Weight down 6 lbs. Assessment & Plan (02/25/2017 3:06 PM RECEIVABLE EXECUTIVE): BMI low. Weight stable since last Ov. Pt aware of importance of diet-proper caloric intake. Assessment & Plan (11/26/2016 11:39 AM CDT): BMI low but has been stable over years. Pt aware of importance with proper caloric intake. Preop general physical exam 11/23/2016 03/22/2022 Assessment & Plan (04/16/2020 8:36 AM RECEIVABLE EXECUTIVE): -Discussed recommendations for exercise at least 30 minutes moderate to vigorous exercise most days of the week. (minimum 150 minutes weekly) -Discussed MyPlate recommendations and increasing fruits and vegetables. -Cancer screening: recommended colon cancer screening 2018;annual mammogram and monthly self breast exam encouraged- scheduled for 05/11/2020. -Immunizations: up to date, yearly influenza vaccines -Continue routine dental and vision care. Assessment & Plan (11/26/2016 11:23 AM CDT): RX for mammogram provided. Anemia 10/05/2016 04/16/2020 Overview (11/13/2017): Due to chronic kidney disease Assessment & Plan (06/14/2018 11:11 AM CDT): Patient having every 2 week hemoglobin and hematocrit check and getting and Aranesp injections p.r.n. With nephrology Assessment & Plan (05/20/2017 9:50 AM CDT): Possibly secondary to chronic kidney disease. Check folate and iron profile. Assessment & Plan (02/25/2017 3:07 PM RECEIVABLE EXECUTIVE): Will continue to monitor. Assessment & Plan (11/26/2016 11:36 AM CDT): Addressed relationship with CKD. Will monitor. Iliotibial band syndrome of left side 08/18/2016 01/06/2019 Abdominal pain 08/19/2012 06/14/2018 Right upper quadrant abdominal pain 04/19/2011 06/14/2018 Hyperthyroidism 08/12/2018 Assessment & Plan (06/14/2018 11:13 AM CDT): Continue methimazole. Will refer to our endocrinology team today. Encounters Date Type Department Care Team Description 07/24/2024 2:35 PM CDT - 07/24/2024 11:59 PM CDT Hospital Encounter [facility] [address] [place] [address] Dizziness and giddiness; Fracture in accidental fall Discharge Disposition: Discharge to home or self care 07/21/2024 10:26 AM CDT - 07/21/2024 12:09 PM CDT Emergency [facility] Emergency Department [address] [place] [address] Kapil Velazco MD Fall, initial encounter (Primary Dx); Contusion of back, unspecified laterality, initial encounter Discharge Disposition: Discharge to home or self care 06/19/2024 12:36 PM CDT - 06/19/2024 11:59 PM CDT Hospital Encounter [facility] Card[facility] [address] [place] [address] Abnormal electrocardiogram (ECG) (EKG) Discharge Disposition: Discharge to home or self care 06/13/2024 7:31 AM CDT - 06/13/2024 11:59 PM CDT Hospital Encounter [facility] [address] [place] [id number] Cervicalgia; Radiculopathy, cervical region Discharge Disposition: Discharge to home or self care 06/13/2024 7:31 AM CDT - 06/13/2024 11:59 PM CDT Hospital Encounter [address] [address] Traumatic rhabdomyolysis, sequela Discharge Disposition: Discharge to home or self care from Last 3 Months Immunizations Immunization Administration Dates Next Due H1N1 Inj Preservative Free 05/30/2011 Influenza, Unspecified 09/13/2023(Deferr ed: Patient Refused),09/13/2023(Deferred: Patient Refused),09/12/2022,12/20/2021(Deferred: Patient Refused),11/16/2021,02/01/2021(Deferred: Patient Refused),03/15/2018(Deferred: Patient Refused),11/12/2017(Deferred: Patient Refused),10/26/2017(Deferred: Patient Refused) Pneumococcal Conjugate PCV 13 08/12/2016 Pneumococcal Polysaccharide PPV23 10/06/2019,02/2012 ZOSTER LIVE 02/13/2012 ZOSTER Recombinant 06/18/2018,06/07/2018, 018 Zoster, unspecified 11/15/2017 Surgical History Surgery Date Site/Laterality Comments CHOLECYSTECTOMY 02/12/1999 - 02/12/2000 OTHER SURGICAL HISTORY ASF / anterior spinal fusion OTHER SURGICAL HISTORY repair fracture rt. ankle OTHER SURGICAL HISTORY left bunionecomy OTHER SURGICAL HISTORY Left hip nailing COLONOSCOPY COLON SURGERY FRACTURE SURGERY SMALL INTESTINE SURGERY SPINE SURGERY BLADDER SURGERY SPINAL FUSION HYSTERECTOMY 02/12/1987 - 02/12/1988 OOPHORECTOMY 02/12/1987 - 02/12/1988 Bilateral Medical History Medical History Date Comments Osteoporosis Benign hypertension with CKD (chronic kidney disease) stage III ([facility]) 09/15/2016 Chronic back pain CKD (chronic kidney disease) stage 3, GFR 30-59 ml/min ([facility]) 11/23/2016 Anemia 10/05/2016 Vitamin B12 deficiency 02/23/2017 Bone lesion 03/29/2017 Vitamin D deficiency 07/03/2017 Hyperthyroidism Migraine 11/26/2016 Anxiety Arthritis Cataract Peptic ulceration GI (gastrointestinal bleed) Kidney stone Low back pain Covid-19 02/2020 Preop general physical exam 11/23/2016 BMI less than 19,adult 11/26/2016 Annual physical exam 08/30/2021 Family History Medical History Relation Name Comments Hypothyroidism Mother Heart disease Other 1 Family history of heart problems; Other Other 2 Family history of htn; Stroke Other 3 Family history of Stroke; Arthritis Other 4 Family history of arthritis; Other Other 5 Family history of seizure; Thyroid disease Sister Cancer Neg Hx Relation Name Status Comments Mother Other 1 Other 2 Other 3 Other 4 Other 5 Sister Social History Tobacco Use Types Packs/Day Years Used Date Smoking Tobacco: Former Cigarettes Q uit: 2014 Smokeless Tobacco: Never Tobacco Cessation:Counseling Given: No Comments:off and on smoker for 40 years. pack per day Alcohol Use [...] points, staff should administer the PHQ-9) 0 12/25/2023 Personal Safety Answer Date Recorded Have you ever been in or are you currently in a harmful physical or emotional relationship or is someone making you feel afraid or unsafe? Denies 07/21/2024 Comments No Sex and Gender Information Value Date Recorded Sex Assigned at Not on file Legal Sex Female 1:16 AM RECEIVABLE EXECUTIVE Gender Identity Not on file Sexual Orientation Not on file Obstetrics History Para Term AB IAB SAB Ectopic Multiple Livin g Live Births 4 1 1 Date Outcome GA Total Labor Labor/2nd/3rd Weight Sex Type Anes PTL Nasreen A1 A5 Name Clin Term Last Filed Vital Signs Vital Sign Reading Time Taken Comments Blood Pressure 187/99 07/21/2024 11:30 AM CDT Pulse 82 07/21/2024 11:30 AM CDT Temperature 36.5 C (97.7 F) 07/21/2024 10:01 AM CDT Respiratory Rate 18 07/21/2024 11:30 AM CDT Oxygen Saturation 99% 07/21/2024 11:30 AM CDT Inhaled Oxygen Concentration - - Weight 51.7 kg (114 lb) 07/21/2024 10:01 AM CDT Height 165.1 cm (5' 5) 07/21/2024 10:01 AM CDT Body Mass Index 18.97 07/21/2024 10:01 AM CDT Plan of Treatment Health Maintenance Due Date Last Done Comments DTaP/Tdap/Td Vaccine (1 - Tdap) 1961 Colon Cancer Screening-Colonoscopy 12/11/2021 12/11/2018, 11/19/2012, 11/19/2012 Covid-19 Vaccine (3 2023-2 5 season) 2023 02/10/2021, 01/13/2021 Osteoporosis Screening-Bone Density Scan 07/03/2024 07/03/2022, 05/20/2020, 10/16/2017, Additional history exists Breast Cancer Screening-Mammogram 08/08/2024 08/09/2023, 07/03/2022, 06/30/2021, Additional history exists Depression Screening 12/24/2024 12/25/2023, 12/20/2022, 12/20/2021, Additional history exists Fall Risk Assessment 12/24/2024 12/25/2023, 12/20/2022, 12/20/2021, Additional history exists Well Visit 65+ 12/24/2024 12/25/2023, 09/2022, 12/20/2021, Additional history exists Hepatitis C Screening Completed 03/28/2016 Zoster Vaccine Completed 06/18/2018, 05/14, 11/15/2017, Additional history exists Colon Cancer Screening-CT Colonography Discontinued 12/11/2018, 11/19/2012, 11/19/2012 Colon Cancer Screening-DNA Stool Discontinued 12/11/2018, 11/19/2012, 11/19/2012 Colon Cancer Screening-FIT Discontinued 12/11, 11/19/2012, 11/19/2012 Colon Cancer Screening-Sigmoidoscopy Discontinued 12/11/2018, 11/19/2012, 11/19/2012 Pneumococcal vaccine 65+ Completed 020, 08/12/2016, 02/13/2012 Influenza Vaccine Discontinued 09/12/2022, 11/16/2021 Hepatitis B Screening Completed 01/25/2024 Goals Goal Patient Goal Type Associated Problems Recent Progress Patient-Stated? Author [facility] No Rayne Green, RN Note: Patient will establish a comfort-function goal and identify the pain level that will allow the patient to perform desired activities and achieve an acceptable quality of life. Procedures Procedure Name Priority Date/Time Associated Diagnosis Comments MRI BRAIN WO CONTRAST Schedule Routine, Read Routine (OP Routine) 07/24/2024 3:34 PM CDT Dizziness and giddiness Fracture in accidental fall EGFR STAT 07/21/2024 11:04 AM CDT DIFFERENTIAL AUTO STAT 07/21/2024 11:04 AM CDT BASIC METABOLIC PANEL STAT 07/21/2024 11:04 AM CDT CBC WITH AUTO DIFFERENTIAL STAT 07/21/2024 11:04 AM CDT XR SPINE LUMBAR COMPLETE 4 OR MORE VIEWS ED 07/21/2024 10:27 AM CDT XR SPINE THORACIC 3 VIEWS ED 07/21/2024 10:27 AM CDT ECG 12-LEAD Routine 06/19/2024 1:36 PM CDT Abnormal electrocardiogram (ECG) (EKG) MRI LUMBAR SPINE WO CONTRAST Schedule Routine, Read Routine (OP Routine) 06/13/2024 8:33 AM CDT Cervicalgia Radiculopathy, cervical region MRI CERVICAL SPINE WO CONTRAST Schedule Routine, Read Routine (OP Routine) 06/13/2024 8:33 AM CDT Traumatic rhabdomyolysis, sequela SCREENING MAMMOGRAM BILATERAL W [facility] Schedule Routine, Read Routine (OP Routine) 08/09/2023 9:25 AM CDT Screening mammogram for breast cancer DEXA AXIAL SKELETON BONE DENSITY 1 OR MORE SITES Schedule Routine, Read Routine (OP Routine) 07/03/2022 9:11 AM CDT Age related osteoporosis, unspecified pathological fracture presence COLONOSCOPY Routine 12/11/2018 SERUM HEPATITIS C AB Routine 03/28/2016 10:53 AM RECEIVABLE EXECUTIVE from Last 3 Months or Most Recently Relevant to Health Maintenance Results * MRI Brain WO Contrast (07/24/2024 3:34 PM CDT) Anatomical Region Laterality Modality Head and Neck N/A Magnetic Resonan ce 07/25/2024 10:2 8 AM CDT Narrative 07/25/2024 10:32 AM CDT EXAM DESCRIPTION: MRI BRAIN WITHOUT CONTRAST REASON FOR STUDY: Chronic dizziness for 1 year. No provided focal neurologic deficits. No provided history of inciting and/or aggravating events, noting history of fall from unspecified height of unspecified date and without provision of head or neck injury pursuant to event. No provided past medical or surgical history. TECHNIQUE: Multiplanar imaging includes non-contrasted T1, T2, FLAIR, and diffusion with ADC map sequences. Additional sequence(s) sensitive to blood products. Images stored on PACS. COMPARISON: Relevant portions of MRI cervical spine without contrast 06/13/2024; DEXA scan 07/03/2022: Reported as osteoporosis. FINDINGS: CEREBRUM: No acute intra-axial hemorrhage. No edema, mass effect, midline shift, or herniation. WHITE MATTER: There is mild scattered periventricular-subcortical T2/FLAIR hyperintense white matter disease, nonspecific, though likely secondary to chronic microvascular ischemia. POSTERIOR FOSSA: Brainstem and cerebellum are unremarkable. DIFFUSION IMAGING: No restricted diffusion to suggest acute/subacute ischemia or infarct. EXTRAAXIAL SPACES: No extra-axial fluid collection. No extra-axial mass. BRAIN VOLUME: Mild cerebral volume loss. PITUITARY: Unremarkable. VASCULATURE: No flow disturbance evident. CALVARIUM: No acute abnormality. Persistent metopic suture. ORBITS: No acute abnormality. [place] ocular lenses replaced bilaterally. PARANASAL SINUSES AND MASTOIDS: Mild rightward bowing of the bony nasal septum with right-directed bony nasal septal spur contacting the adjoining nasal mucosa, a potential source of contact point headaches. Correlate with clinical context. Paranasal sinuses clear. Mastoid air cells well aerated. OTHER: No other significant finding. IMPRESSION: No acute intracranial process with chronic findings as above. THIS IS AN ELECTRONICALLY VERIFIED FINAL REPORT 07/25/2024 10:32 AM - Electronically signed by Diego Rose M.D. KANDY: KANDY Report ID: [id number] Reading Location: [place] [address] Procedure Note Diego Rose MD - 07/25/2024 EXAM DESCRIPTION: MRI BRAIN WITHOUT CONTRAST REASON FOR STUDY: Chronic dizziness for 1 year. No provided focalneurologic deficits. No provided history of inciting and/or aggravating events,noting history of fall from unspecified height of unspecified date and without provision of head or neck injury pursuant to event. No provided pastmedical or surgical history. TECHNIQUE: Multiplanar imaging includes non-contrasted T1, T2, FLAIR, and diffusion with ADC map sequences. Additional sequence(s) sensitive [employer]. Images stored on PACS. COMPARISON: Relevant portions of MRI cervical spine without contrast 06/13/2024; DEXA scan 07/03/2022: Reported as osteoporosis. FINDINGS: CEREBRUM: No acute intra-axial hemorrhage. No edema, mass effect,midline shift, or herniation. WHITE MATTER: There is mild scattered periventricular-subcortical T2/FLAIR hyperintense white matter disease, nonspecific, though likely secondary to chronic microvascular ischemia. POSTERIOR FOSSA: Brainstem and cerebellum are unremarkable. DIFFUSION IMAGING: No restricted diffusion to suggest acute/subacute ischemia or infarct. EXTRAAXIAL SPACES: No extra-axial fluid collection. No extra-axialmass. BRAIN VOLUME: Mild cerebral volume loss. PITUITARY: Unremarkable. VASCULATURE: No flow disturbance evident. CALVARIUM: No acute abnormality. Persistent metopic suture. ORBITS: No acute abnormality. [place] ocular lenses replaced bilaterally. PARANASAL SINUSES AND MASTOIDS: Mild rightward bowing of the bony nasal septum with right-directed bony nasal septal spur contacting the adjoining nasal mucosa, a potential source of contact point headaches. Correlatewith clinical context. Paranasal sinuses clear. Mastoid air cells wellaerated. OTHER: No other significant finding. IMPRESSION: No acute intracranial process with chronic findings as above. THIS IS AN ELECTRONICALLY VERIFIED FINAL REPORT 07/25/2024 10:32 AM - Electronically signed by Diego Rose M.D. KANDY: KANDY Report ID: [id number] Reading Location: [place] [address] Ash[facility] KELSEY IMG MRI PROCEDURES Fin al Result * eGFR (07/21/2024 11:04 AM CDT) eGFR 64 >=60 mL/min/1. 73 m2 Comment: Interpretive Data Reference Interval Normal >/= 90 mL/min/1.73m2 Mildly decreased* 60 - 89 mL/min/1.73m2 Mildly to moderately decreased 45 - 59 mL/min/1.73m2 Moderately to severely decreased 30 - 44 mL/min/1.73m2 Severely decreased 15 - 29 mL/min/1.73m2 Kidney Failure < 15 mL/min/1.73m2 *Relative to young adult level Estimated glomerular filtration rate is determined by the 2020 CKD-EPI equation recommended by the National Kid[employer] Foundation (A Unifying Approach to GFR Estimation: Recommendations of the NKF-ASK Task Force on Reassessing the Inclusion of Race in Diagnosing Kidney Disease, JASN 2020). The CKD-EPI equation should not be used for patients with unstable renal function and has not been validated in children and those over 70. Current interpretive data was last reviewed 2020. Blood 07/21/2024 11:0 4 AM CDT 07/21/2024 11:10 AM CDT us Kapil Velazco MD LAB BLOOD ORDERABLES Final R esult [facility] ([place]) 1 [facility] [place] [address] * Differential, auto (07/21/2024 11:04 AM CDT) Neutrophil abs 4.79 1.50 - 6.50 K/cumm Imm gran abs 0.02 0.00 - 0.10 K/cumm [facility] ([place]) Lymphocyte abs 1.55 0.80 - 3.30 K/cumm [facility] ([place]) Monocyte abs 0.61 0.20 - 0.80 K/cumm [facility] ([place]) Eosinophil abs 0.07 0.00 - 0.50 K/cumm [facility] ([place]) Basophil abs 0.04 0.00 - 0.10 K/cumm [facility] ([place]) Neutrophil pct 67.6 % [facility] ([place]) Comment: Interpretive Data Percent cell count reference ranges are not reported, since discordance with absolute values may lead to misinterpretation of CBC data. Current Interpretive Data was last revised on 2017. Imm gran pct 0.3 % [facility] ([place]) Comment: Interpretive Data Percent cell count reference ranges are not reported, since discordance with absolute values may lead to misinterpretation of CBC data. Current Interpretive Data was last revised on 2017. Lymphocyte pct 21.9 % [facility] ([place]) Comment: Interpretive Data Percent cell count reference ranges are not reported, since discordance with absolute values may lead to misinterpretation of CBC data. Current Interpretive Data was last revised on 2017. Monocyte pct 8.6 % [facility] ([place]) Comment: Interpretive Data Percent cell count reference ranges are not reported, since discordance with absolute values may lead to misinterpretation of CBC data. Current Interpretive Data was last revised on 2017. Eosinophil pct 1.0 % [facility] ([place]) Comment: Interpretive Data Percent cell count reference ranges are not reported, since discordance with absolute values may lead to misinterpretation of CBC data. Current Interpretive Data was last revised on 2017. Basophil pct 0.6 % [facility] ([place]) Comment: Interpretive Data Percent cell count reference ranges are not reported, since discordance with absolute values may lead to misinterpretation of CBC data. Current Interpretive Data was last revised on 2017. Blood 07/21/2024 11:0 4 AM CDT 07/21/2024 11:10 AM CDT Kapil Velazco MD LAB BLOOD ORDERABLES Final R esult [facility] ([place]) [facility] [place] [address] * (ABNORMAL) CBC with auto differential (07/21/2024 11:04 AM CDT) WBC 7.08 3.80 - 9.90 K/cumm Hgb 12.2 11.9 - 15.5 g/dL [facility] ([place]) Hct 38.2 35.6 - 45.5 % [facility] ([place]) Plt 251 150 - 400 K/cumm [facility] ([place]) MPV 10.1 9.1 - 12.3 fL [facility] ([place]) RBC 4.11 3.90 - 5.20 M/cumm [facility] ([place]) MCV 92.9 81.3 - 96.4 fL [facility] ([place]) MCH 29.7 27.1 - 33.3 pg [facility] ([place]) MCHC 31.9(L) 32.3 - 35.7 g/dL [facility] ([place]) RDW CV 12.1 11.1 - 14.9 % [facility] ([place]) RDW SD 41.9 35.7 - 48.1 fL [facility] ([place]) NRBC abs 0.00 0.00 - 0.01 K/cumm [facility] ([place]) Blood 07/21/2024 11:0 4 AM CDT 07/21/2024 11:10 AM CDT Kapil Velazco MD LAB BLOOD ORDERABLES Final R esult [facility] ([place]) [facility] [place] [address] * (ABNORMAL) Basic metabolic panel (07/21/2024 11:04 AM CDT) Sodium 139 135 - 145 mmol/L Potassium, pl 5.3(H) 3.3 - 4.9 mmol/L [facility] ([place]) Chloride 102 97 - 110 mmol/L [facility] ([place]) CO2 24 22 - 32 mmol/L [facility] ([place]) Anion gap 13 2 - 15 mmol/L [facility] ([place]) BUN 13 6 - 25 mg/dL [facility] ([place]) Creatinine 0.94 0.60 - 1.10 mg/dL [facility] (ANAHY) Glucose 110 70 - 199 mg/dL [facility] (ANAHY) Comment: Interpretive Data Fasting glucose >/= 126 mg/dl is diagnostic for diabetes. Fasting is defined as no caloric intake for at least 8 hours. Fasting glucose between 100 mg/dl to 125 mg/dl is diagnostic of prediabetes. In a patient with classic symptoms of hyperglycemia or hyperglycemic crisis, a random glucose >/= 200 mg/dl is diagnostic for diabetes. In the absence of unequivocal hyperglycemia, results should be confirmed by repeat testing. The classification and Diagnosis of Diabetes Diabetes Care 2021; 46: S19-S40. Current interpretive data was last revised 2022. Calcium 9.7 8.5 - 10.3 mg/dL [facility] (ANAHY) Blood 07/21/2024 11:0 4 AM CDT 07/21/2024 11:10 AM CDT Kapil Velazco MD LAB BLOOD ORDERABLES Final R esult [facility] (ANAHY) 1 [facility] [place] [address] * XR Spine Lumbar Complete 4 Or More (07/21/2024 10:27 AM CDT) Anatomical Region Laterality Modality Spine N/A Computed Radiogr aphy 07/21/2024 11:0 4 AM CDT Narrative 07/21/2024 11:07 AM CDT EXAM DESCRIPTION: XR SPINE LUMBAR 4 OR MORE VIEWS REASON FOR STUDY: fall c/o back pain after a fall down her steps today. Pt reports she fell down 4-5 steps and landed on her back. Hx of back surgeries--low back Hx of falls in the past TECHNIQUE: 5 radiographic view(s) of the lumbar spine. COMPARISON: 06/13/2024, 12/08/2008 FINDINGS: ALIGNMENT: Anatomic. VERTEBRAE: Status post anterior fusion of L4-L5 and L5-S1. Vertebral body heights are grossly maintained. No definite acute hardware complication or acute displaced fracture. Mild facet arthrosis most pronounced at L4-L5 and L5-S1. INTERVERTEBRAL DISCS: Fusion L4-S1. Mild intervertebral disc height loss. SOFT TISSUES: Suture material within the right lower quadrant. Surgical clips in the right upper quadrant. Scattered colonic stool. Spinal canal and neuroforaminal narrowing poorly evaluated by radiograph. OTHER: Partially visualized screw fixation of the proximal left femur. IMPRESSION: No acute displaced fracture or traumatic malalignment of the lumbar spine. THIS IS AN ELECTRONICALLY VERIFIED FINAL REPORT 07/21/2024 11:07 AM - Electronically signed by Finesse Mendoza M.D. NS: NS Report ID: [id number] Reading Location: [id number] Procedure Note Finesse Mendoza MD - 07/21/2024 EXAM DESCRIPTION: XR SPINE LUMBAR 4 OR MORE VIEWS REASON FOR STUDY: fall c/o back pain after a fall down her steps today. Pt reports she fell down4-5 steps and landed on her back. Hx of back surgeries--low back Hx offalls in the past TECHNIQUE: 5 radiographic view(s) of the lumbar spine. COMPARISON: 06/13/2024, 12/08/2008 FINDINGS: ALIGNMENT: Anatomic. VERTEBRAE: Status post anterior fusion of L4-L5 and L5-S1. Vertebralbody heights are grossly maintained. No definite acute hardware complicationor acute displaced fracture. Mild facet arthrosis most pronounced at L4-L5and L5-S1. INTERVERTEBRAL DISCS: Fusion L4-S1. Mild intervertebral disc heightloss. SOFT TISSUES: Suture material within the right lower quadrant. Surgical clips in the right upper quadrant. Scattered colonic stool. Spinalcanal and neuroforaminal narrowing poorly evaluated by radiograph. OTHER: Partially visualized screw fixation of the proximal left femur. IMPRESSION: No acute displaced fracture or traumatic malalignment of the lumbar spine. THIS IS AN ELECTRONICALLY VERIFIED FINAL REPORT 07/21/2024 11:07 AM - Electronically signed by Finesse Mendoza M.D. NS: NS Report ID: [id number] Reading Location: [place] [id number] Maribel Fam MD IMG XR PROCEDURES F inal Result * XR Spine Thoracic 3 Vw (07/21/2024 10:27 AM CDT) Anatomical Region Laterality Modality Spine N/A Computed Radiogr aphy 07/21/2024 10:4 3 AM CDT Narrative 07/21/2024 11:04 AM CDT EXAM DESCRIPTION: XR SPINE THORACIC 3 VIEWS REASON FOR STUDY: fall c/o back pain after a fall down her steps today. Pt reports she fell down 4-5 steps and landed on her back. Hx of back surgeries Hx of falls in the past c/o back pain after a fall down her steps today. Pt reports she fell down 4-5 steps and landed on her back. Hx of back surgeries--low back Hx of falls in the past TECHNIQUE: 3 radiographic view(s) of the thoracic spine. COMPARISON: 06/13/2024 FINDINGS: ALIGNMENT: Accentuated thoracic kyphosis. Mild scoliotic curvature of the thoracolumbar spine. No definite acute traumatic spondylolisthesis. VERTEBRAE: Vertebral body heights are maintained. INTERVERTEBRAL DISCS: Unremarkable. SOFT TISSUES: Unremarkable. Spinal canal and neuroforaminal narrowing poorly evaluated by radiograph. OTHER: No other significant abnormality. IMPRESSION: No acute displaced fracture or traumatic malalignment of the thoracic spine. THIS IS AN ELECTRONICALLY VERIFIED FINAL REPORT 07/21/2024 11:04 AM - Electronically signed by Finesse Mendoza M.D. NS: NS Report ID: [id number] Reading Location: [id number] Procedure Note Finesse Mendoza MD - 07/21/2024 EXAM DESCRIPTION: XR SPINE THORACIC 3 VIEWS REASON FOR STUDY: fall c/o back pain after a fall down her steps today. Pt reports she fell down4-5 steps and landed on her back. Hx of back surgeries Hx of falls in thepast c/o back pain after a fall down her steps today. Pt reports she fell down4-5 steps and landed on her back. Hx of back surgeries--low back Hx offalls in the past TECHNIQUE: 3 radiographic view(s) of the thoracic spine. COMPARISON: 06/13/2024 FINDINGS: ALIGNMENT: Accentuated thoracic kyphosis. Mild scoliotic curvature ofthe thoracolumbar spine. No definite acute traumatic spondylolisthesis. VERTEBRAE: Vertebral body heights are maintained. INTERVERTEBRAL DISCS: Unremarkable. SOFT TISSUES: Unremarkable. Spinal canal and neuroforaminal narrowingpoorly evaluated by radiograph. OTHER: No other significant abnormality. IMPRESSION: No acute displaced fracture or traumatic malalignment of the thoracicspine. THIS IS AN ELECTRONICALLY VERIFIED FINAL REPORT 07/21/2024 11:04 AM - Electronically signed by Finesse Mendoza M.D. NS: NS Report ID: [id number] Reading Location: [place] [id number] [place] Maribel Fam MD IMG XR PROCEDURES F inal Result * ECG 12 lead (06/19/2024 1:36 PM CDT) 06/19/2024 1:10 PM CDT Narrative [facility] - 06/19/2024 2:36 PM CDT Vent Rate: 62 bpm RR Interval: 954 msec NC Interval: 226 msec QRS Duration: 76 msec QT Interval: 423 msec QTC Interval: 429 msec P-R-T [place]: 73 - 10 - 41 degrees IMPRESSION: SINUS RHYTHM WITH FIRST DEGREE AV BLOCK ABNORMAL ECG No change from prior EKG Electronically Signed By: Jacques Ash MD us Santos Patterson MD ECG ORDERABLES Final Resul t [facility] * MRI Lumbar Spine WO Contrast (06/13/2024 8:33 AM CDT) Anatomical Region Laterality Modality Spine N/A Magnetic Resonan ce 06/13/2024 10:4 1 AM CDT Narrative 06/13/2024 10:55 AM CDT EXAM DESCRIPTION: MRI CERVICAL SPINE WO CONTRAST; MRI LUMBAR SPINE WO CONTRAST REASON FOR STUDY: Chronic nontraumatic neck and low back pain with unspecified levels and type bilateral upper extremity radiculopathy and bilateral lower extremities pain and right leg weakness. No provided history of inciting and/or aggravating events. No provided past medical history. History of unspecified levels and date lumbar fusion. TECHNIQUE: Sagittal and axial imaging of the cervical and lumbar spine includes T1, T2, STIR and gradient echo sequences. Images saved to PACS. COMPARISON: No prior imaging of the cervical spine available at time of interpretation. DEXA scan 07/03/2022: Reported as osteoporosis; relevant portions of CT abdomen pelvis without contrast 11/11/2018; lumbar spine radiograph 12/08/2008 (images without report). FINDINGS: CERVICAL SPINE: CERVICAL ALIGNMENT: Variable minimal stair step retrolisthesis C3 on C4 and C4 on C5 and variable minimal stair step anterolisthesis C7 on T1 through T2 on T3. CERVICAL VERTEBRAE: No MR evidence of acute-subacute fracture. Vertebral body heights maintained. Spondylosis. Marrow signal within normal limits. CERVICAL DISCS: Multilevel variable intervertebral disc desiccation and loss of intervertebral disc height of the visualized cervicothoracic spine. CERVICAL HARDWARE: None in the cervical spine. CERVICAL CORD: Normal in size and signal intensity. BASE OF BRAIN: No significant finding. INDIVIDUAL DISC LEVELS: C1-C2: No spinal canal stenosis. C2-C3: No diffuse disc bulge or focal herniation. Bilateral, [id number]-[id number]-ratc-right, hypertrophic facet arthropathy. No spinal canal stenosis. No neural foraminal stenosis. C3-C4: Posterior disc osteophyte complex indenting the ventral thecal sac. Bilateral hypertrophic facet arthropathy. Bilateral uncovertebral joint disease. No spinal canal stenosis no neural foraminal stenosis C4-C5: Posterior disc osteophyte complex indenting the ventral thecal sac. Bilateral hypertrophic facet arthropathy. Bilateral uncovertebral joint disease. With MPR analysis, mild spinal canal stenosis. No significant neural foraminal stenosis. C5-C6: Posterior disc osteophyte complex indenting the ventral thecal sac. Bilateral hypertrophic facet arthropathy. Bilateral uncovertebral joint disease. With MPR analysis, mild-moderate spinal canal stenosis. Bilateral neural foraminal stenosis common noting combination of osteophytosis/disc and arthropathic facet variable slight contact with exiting bilateral C6 nerve roots. C6-C7: Posterior disc osteophyte complex indenting the ventral thecal sac. Bilateral hypertrophic facet arthropathy. With MPR analysis, mild spinal canal stenosis. No significant neural foraminal stenosis. C7-T1: Slight uncovering of the intervertebral disc. Bilateral facet arthropathy. No spinal canal stenosis. No neural foraminal stenosis CERVICAL OTHER: No other significant finding. LUMBAR SPINE: SEGMENTATION: No lumbosacral transitional anatomy. The lowest fully formed intervertebral disc level is labeled L5-S1. LUMBAR ALIGNMENT: Normal. LUMBAR VERTEBRAE: No MR evidence of acute-subacute fracture. Vertebral body heights maintained. Spondylosis. Scattered tiny hemangiomas and patchy fatty marrow replacement about the visualized osseous architecture. LUMBAR DISCS: Of the non fused intervertebral disc levels, multilevel variable intervertebral disc desiccation and loss of intervertebral disc height of the lower thoracic through lumbar spine. LUMBAR HARDWARE: Anterior instrumented spinal fusion L4-S1. Correlate with operative details. LUMBAR CORD/CAUDA: Normal in size and signal intensity with conus medullaris termination at L1. INDIVIDUAL DISC LEVELS: L1-2: No diffuse disc bulge or focal herniation. Bilateral facet arthropathy. Mild ligamentum flavum thickening. No spinal canal stenosis. No neural foraminal stenosis. L2-3: Annular disc bulge. Bilateral hypertrophic facet arthropathy, noting slight fluid in the facet joints suggestive of facet synovitis. Ligamentum flavum thickening. No spinal canal stenosis. No significant neural foraminal stenosis. L3-4: Annular disc bulge with shallow right subarticular disc protrusion. Bilateral hypertrophic facet arthropathy, noting slight fluid in the facet joints suggestive of facet synovitis. Compromise of the nmjfz-dzpbqlr-rrcj-left lateral recesses, noting combination of disc and arthropathic facet variable slight contact with the descending bilateral L4 nerve roots. Minimal-mild spinal canal stenosis. Mild bilateral neural foraminal stenosis. L4-5: Fused at this level. Bilateral hypertrophic facet arthropathy. Ligamentum flavum thickening. No spinal canal stenosis. Mild proximal bilateral neural foraminal stenosis. L5-S1: Fused at this level. Bilateral hypertrophic facet arthropathy. No spinal canal stenosis. No neural foraminal stenosis. LUMBAR OTHER: No other significant finding. SACRUM: Visualized upper sacrum intact. SOFT TISSUES: Allowing for motion artifact, no overt evidence of acute abnormality. OTHER: Sarcopenia manifested as variably robust fatty atrophy of the visualized musculature. IMPRESSION: 1. Constellation of spondylolisthesis, spondylosis, and degenerative disc disease of the cervical spine as detailed level by level above. 2. 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 THIS IS AN ELECTRONICALLY VERIFIED FINAL REPORT 06/13/2024 10:55 AM - Electronically signed by Diego Rose M.D. KANDY: KANDY Report ID: [id number] Reading Location: [id number] Procedure Note Diego Rose MD - 06/13/2024 EXAM DESCRIPTION: MRI CERVICAL SPINE WO CONTRAST; MRI LUMBAR SPINE WO CONTRAST REASON FOR STUDY: Chronic nontraumatic neck and low back pain withunspecified levels and type bilateral upper extremity radiculopathy and bilaterallower extremities pain and right leg weakness. No provided history of inciting and/or aggravating events. No provided past medical history. History of unspecified levels and date lumbar fusion. TECHNIQUE: Sagittal and axial imaging of the cervical and lumbar spine includes T1, T2, STIR and gradient echo sequences. Images saved to PACS. COMPARISON: No prior imaging of the cervical spine available at time of interpretation. DEXA scan 07/03/2022: Reported as osteoporosis; relevant portions of CT abdomen pelvis without contrast 11/11/2018; lumbar spine radiograph 12/08/2008 (images without report). FINDINGS: CERVICAL SPINE: CERVICAL ALIGNMENT: Variable minimal stair step retrolisthesis C3 on C4and C4 on C5 and variable minimal stair step anterolisthesis C7 on T1 throughT2 on T3. CERVICAL VERTEBRAE: No MR evidence of acute-subacute fracture.Vertebral body heights maintained. Spondylosis. Marrow signal within normallimits. CERVICAL DISCS: Multilevel variable intervertebral disc desiccation andloss of intervertebral disc height of the visualized cervicothoracic spine. CERVICAL HARDWARE: None in the cervical spine. CERVICAL CORD: Normal in size and signal intensity. BASE OF BRAIN: No significant finding. INDIVIDUAL DISC LEVELS: C1-C2: No spinal canal stenosis. C2-C3: No diffuse disc bulge or focal herniation. Bilateral, evns-jazzter-zvvr-right, hypertrophic facet arthropathy. No spinal canal stenosis. No neural foraminal stenosis. C3-C4: Posterior disc osteophyte complex indenting the ventral thecalsac. Bilateral hypertrophic facet arthropathy. Bilateral uncovertebral joint disease. No spinal canal stenosis no neural foraminal stenosis C4-C5: Posterior disc osteophyte complex indenting the ventral thecalsac. Bilateral hypertrophic facet arthropathy. Bilateral uncovertebral joint disease. With MPR analysis, mild spinal canal stenosis. No significant neural foraminal stenosis. C5-C6: Posterior disc osteophyte complex indenting the ventral thecalsac. Bilateral hypertrophic facet arthropathy. Bilateral uncovertebral joint disease. With MPR analysis, mild-moderate spinal canal stenosis.Bilateral neural foraminal stenosis common noting combination of osteophytosis/discand arthropathic facet variable slight contact with exiting bilateral C6 nerve roots. C6-C7: Posterior disc osteophyte complex indenting the ventral thecalsac. Bilateral hypertrophic facet arthropathy. With MPR analysis, mild spinal canal stenosis. No significant neural foraminal stenosis. C7-T1: Slight uncovering of the intervertebral disc. Bilateral facet arthropathy. No spinal canal stenosis. No neural foraminal stenosis CERVICAL OTHER: No other significant finding. LUMBAR SPINE: SEGMENTATION: No lumbosacral transitional anatomy. The lowest fullyformed intervertebral disc level is labeled L5-S1. LUMBAR ALIGNMENT: Normal. LUMBAR VERTEBRAE: No MR evidence of acute-subacute fracture. Vertebralbody heights maintained. Spondylosis. Scattered tiny hemangiomas and patchyfatty marrow replacement about the visualized osseous architecture. LUMBAR DISCS: Of the non fused intervertebral disc levels, multilevel variable intervertebral disc desiccation and loss of intervertebral disc height of the lower thoracic through lumbar spine. LUMBAR HARDWARE: Anterior instrumented spinal fusion L4-S1. Correlatewith operative details. LUMBAR CORD/CAUDA: Normal in size and signal intensity with conusmedullaris termination at L1. INDIVIDUAL DISC LEVELS: L1-2: No diffuse disc bulge or focal herniation. Bilateral facet arthropathy. Mild ligamentum flavum thickening. No spinal canalstenosis. No neural foraminal stenosis. L2-3: Annular disc bulge. Bilateral hypertrophic facet arthropathy,noting slight fluid in the facet joints suggestive of facet synovitis.Ligamentum flavum thickening. No spinal canal stenosis. No significant neuralforaminal stenosis. L3-4: Annular disc bulge with shallow right subarticular discprotrusion. Bilateral hypertrophic facet arthropathy, noting slight fluid in the facet joints suggestive of facet synovitis. Compromise of the cgkbd-mejxjhs-nhui-left lateral recesses, noting combination of disc and arthropathic facet variable slight contact with the descending bilateralL4 nerve roots. Minimal-mild spinal canal stenosis. Mild bilateral neural foraminal stenosis. L4-5: Fused at this level. Bilateral hypertrophic facet arthropathy. Ligamentum flavum thickening. No spinal canal stenosis. Mild proximal bilateral neural foraminal stenosis. L5-S1: Fused at this level. Bilateral hypertrophic facet arthropathy.No spinal canal stenosis. No neural foraminal stenosis. LUMBAR OTHER: No other significant finding. SACRUM: Visualized upper sacrum intact. SOFT TISSUES: Allowing for motion artifact, no overt evidence of acute abnormality. OTHER: Sarcopenia manifested as variably robust fatty atrophy of the visualized musculature. IMPRESSION: 1. Constellation of spondylolisthesis, spondylosis, and degenerativedisc disease of the cervical spine as detailed level by level above. 2. 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 THIS IS AN ELECTRONICALLY VERIFIED FINAL REPORT 06/13/2024 10:55 AM - Electronically signed by Diego Rose M.D. KANDY: KANDY Report ID: [id number] Reading Location: [place] [id number] [place] Santos Patterson MD IMG MRI PROCEDURES Final Re sult * MRI Cervical Spine WO Contrast (06/13/2024 8:33 AM CDT) Anatomical Region Laterality Modality Spine N/A Magnetic Resonan ce 06/13/2024 10:4 1 AM CDT Narrative 06/13/2024 10:55 AM CDT EXAM DESCRIPTION: MRI CERVICAL SPINE WO CONTRAST; MRI LUMBAR SPINE WO CONTRAST REASON FOR STUDY: Chronic nontraumatic neck and low back pain with unspecified levels and type bilateral upper extremity radiculopathy and bilateral lower extremities pain and right leg weakness. No provided history of inciting and/or aggravating events. No provided past medical history. History of unspecified levels and date lumbar fusion. TECHNIQUE: Sagittal and axial imaging of the cervical and lumbar spine includes T1, T2, STIR and gradient echo sequences. Images saved to PACS. COMPARISON: No prior imaging of the cervical spine available at time of interpretation. DEXA scan 07/03/2022: Reported as osteoporosis; relevant portions of CT abdomen pelvis without contrast 11/11/2018; lumbar spine radiograph 12/08/2008 (images without report). FINDINGS: CERVICAL SPINE: CERVICAL ALIGNMENT: Variable minimal stair step retrolisthesis C3 on C4 and C4 on C5 and variable minimal stair step anterolisthesis C7 on T1 through T2 on T3. CERVICAL VERTEBRAE: No MR evidence of acute-subacute fracture. Vertebral body heights maintained. Spondylosis. Marrow signal within normal limits. CERVICAL DISCS: Multilevel variable intervertebral disc desiccation and loss of intervertebral disc height of the visualized cervicothoracic spine. CERVICAL HARDWARE: None in the cervical spine. CERVICAL CORD: Normal in size and signal intensity. BASE OF BRAIN: No significant finding. INDIVIDUAL DISC LEVELS: C1-C2: No spinal canal stenosis. C2-C3: No diffuse disc bulge or focal herniation. Bilateral, obba-lgvlnon-mhrq-right, hypertrophic facet arthropathy. No spinal canal stenosis. No neural foraminal stenosis. C3-C4: Posterior disc osteophyte complex indenting the ventral thecal sac. Bilateral hypertrophic facet arthropathy. Bilateral uncovertebral joint disease. No spinal canal stenosis no neural foraminal stenosis C4-C5: Posterior disc osteophyte complex indenting the ventral thecal sac. Bilateral hypertrophic facet arthropathy. Bilateral uncovertebral joint disease. With MPR analysis, mild spinal canal stenosis. No significant neural foraminal stenosis. C5-C6: Posterior disc osteophyte complex indenting the ventral thecal sac. Bilateral hypertrophic facet arthropathy. Bilateral uncovertebral joint disease. With MPR analysis, mild-moderate spinal canal stenosis. Bilateral neural foraminal stenosis common noting combination of osteophytosis/disc and arthropathic facet variable slight contact with exiting bilateral C6 nerve roots. C6-C7: Posterior disc osteophyte complex indenting the ventral thecal sac. Bilateral hypertrophic facet arthropathy. With MPR analysis, mild spinal canal stenosis. No significant neural foraminal stenosis. C7-T1: Slight uncovering of the intervertebral disc. Bilateral facet arthropathy. No spinal canal stenosis. No neural foraminal stenosis CERVICAL OTHER: No other significant finding. LUMBAR SPINE: SEGMENTATION: No lumbosacral transitional anatomy. The lowest fully formed intervertebral disc level is labeled L5-S1. LUMBAR ALIGNMENT: Normal. LUMBAR VERTEBRAE: No MR evidence of acute-subacute fracture. Vertebral body heights maintained. Spondylosis. Scattered tiny hemangiomas and patchy fatty marrow replacement about the visualized osseous architecture. LUMBAR DISCS: Of the non fused intervertebral disc levels, multilevel variable intervertebral disc desiccation and loss of intervertebral disc height of the lower thoracic through lumbar spine. LUMBAR HARDWARE: Anterior instrumented spinal fusion L4-S1. Correlate with operative details. LUMBAR CORD/CAUDA: Normal in size and signal intensity with conus medullaris termination at L1. INDIVIDUAL DISC LEVELS: L1-2: No diffuse disc bulge or focal herniation. Bilateral facet arthropathy. Mild ligamentum flavum thickening. No spinal canal stenosis. No neural foraminal stenosis. L2-3: Annular disc bulge. Bilateral hypertrophic facet arthropathy, noting slight fluid in the facet joints suggestive of facet synovitis. Ligamentum flavum thickening. No spinal canal stenosis. No significant neural foraminal stenosis. L3-4: Annular disc bulge with shallow right subarticular disc protrusion. Bilateral hypertrophic facet arthropathy, noting slight fluid in the facet joints suggestive of facet synovitis. Compromise of the luixy-gmryqqz-lqmx-left lateral recesses, noting combination of disc and arthropathic facet variable slight contact with the descending bilateral L4 nerve roots. Minimal-mild spinal canal stenosis. Mild bilateral neural foraminal stenosis. L4-5: Fused at this level. Bilateral hypertrophic facet arthropathy. Ligamentum flavum thickening. No spinal canal stenosis. Mild proximal bilateral neural foraminal stenosis. L5-S1: Fused at this level. Bilateral hypertrophic facet arthropathy. No spinal canal stenosis. No neural foraminal stenosis. LUMBAR OTHER: No other significant finding. SACRUM: Visualized upper sacrum intact. SOFT TISSUES: Allowing for motion artifact, no overt evidence of acute abnormality. OTHER: Sarcopenia manifested as variably robust fatty atrophy of the visualized musculature. IMPRESSION: 1. Constellation of spondylolisthesis, spondylosis, and degenerative disc disease of the cervical spine as detailed level by level above. 2. 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 THIS IS AN ELECTRONICALLY VERIFIED FINAL REPORT 06/13/2024 10:55 AM - Electronically signed by Diego Rose M.D. KANDY: KANDY Report ID: [id number] Reading Location: [place] [id number] Procedure Note Diego Rose MD - 06/13/2024 EXAM DESCRIPTION: MRI CERVICAL SPINE WO CONTRAST; MRI LUMBAR SPINE WO CONTRAST REASON FOR STUDY: Chronic nontraumatic neck and low back pain withunspecified levels and type bilateral upper extremity radiculopathy and bilaterallower extremities pain and right leg weakness. No provided history of inciting and/or aggravating events. No provided past medical history. History of unspecified levels and date lumbar fusion. TECHNIQUE: Sagittal and axial imaging of the cervical and lumbar spine includes T1, T2, STIR and gradient echo sequences. Images saved to PACS. COMPARISON: No prior imaging of the cervical spine available at time of interpretation. DEXA scan 07/03/2022: Reported as osteoporosis; relevant portions of CT abdomen pelvis without contrast 11/11/2018; lumbar spine radiograph 12/08/2008 (images without report). FINDINGS: CERVICAL SPINE: CERVICAL ALIGNMENT: Variable minimal stair step retrolisthesis C3 on C4and C4 on C5 and variable minimal stair step anterolisthesis C7 on T1 throughT2 on T3. CERVICAL VERTEBRAE: No MR evidence of acute-subacute fracture.Vertebral body heights maintained. Spondylosis. Marrow signal within normallimits. CERVICAL DISCS: Multilevel variable intervertebral disc desiccation andloss of intervertebral disc height of the visualized cervicothoracic spine. CERVICAL HARDWARE: None in the cervical spine. CERVICAL CORD: Normal in size and signal intensity. BASE OF BRAIN: No significant finding. INDIVIDUAL DISC LEVELS: C1-C2: No spinal canal stenosis. C2-C3: No diffuse disc bulge or focal herniation. Bilateral, ghfl-yvjvmvd-vhhd-right, hypertrophic facet arthropathy. No spinal canal stenosis. No neural foraminal stenosis. C3-C4: Posterior disc osteophyte complex indenting the ventral thecalsac. Bilateral hypertrophic facet arthropathy. Bilateral uncovertebral joint disease. No spinal canal stenosis no neural foraminal stenosis C4-C5: Posterior disc osteophyte complex indenting the ventral thecalsac. Bilateral hypertrophic facet arthropathy. Bilateral uncovertebral joint disease. With MPR analysis, mild spinal canal stenosis. No significant neural foraminal stenosis. C5-C6: Posterior disc osteophyte complex indenting the ventral thecalsac. Bilateral hypertrophic facet arthropathy. Bilateral uncovertebral joint disease. With MPR analysis, mild-moderate spinal canal stenosis.Bilateral neural foraminal stenosis common noting combination of osteophytosis/discand arthropathic facet variable slight contact with exiting bilateral C6 nerve roots. C6-C7: Posterior disc osteophyte complex indenting the ventral thecalsac. Bilateral hypertrophic facet arthropathy. With MPR analysis, mild spinal canal stenosis. No significant neural foraminal stenosis. C7-T1: Slight uncovering of the intervertebral disc. Bilateral facet arthropathy. No spinal canal stenosis. No neural foraminal stenosis CERVICAL OTHER: No other significant finding. LUMBAR SPINE: SEGMENTATION: No lumbosacral transitional anatomy. The lowest fullyformed intervertebral disc level is labeled L5-S1. LUMBAR ALIGNMENT: Normal. LUMBAR VERTEBRAE: No MR evidence of acute-subacute fracture. Vertebralbody heights maintained. Spondylosis. Scattered tiny hemangiomas and patchyfatty marrow replacement about the visualized osseous architecture. LUMBAR DISCS: Of the non fused intervertebral disc levels, multilevel variable intervertebral disc desiccation and loss of intervertebral disc height of the lower thoracic through lumbar spine. LUMBAR HARDWARE: Anterior instrumented spinal fusion L4-S1. Correlatewith operative details. LUMBAR CORD/CAUDA: Normal in size and signal intensity with conusmedullaris termination at L1. INDIVIDUAL DISC LEVELS: L1-2: No diffuse disc bulge or focal herniation. Bilateral facet arthropathy. Mild ligamentum flavum thickening. No spinal canalstenosis. No neural foraminal stenosis. L2-3: Annular disc bulge. Bilateral hypertrophic facet arthropathy,noting slight fluid in the facet joints suggestive of facet synovitis.Ligamentum flavum thickening. No spinal canal stenosis. No significant neuralforaminal stenosis. L3-4: Annular disc bulge with shallow right subarticular discprotrusion. Bilateral hypertrophic facet arthropathy, noting slight fluid in the facet joints suggestive of facet synovitis. Compromise of the lyuhm-daksovl-rhxm-left lateral recesses, noting combination of disc and arthropathic facet variable slight contact with the descending bilateralL4 nerve roots. Minimal-mild spinal canal stenosis. Mild bilateral neural foraminal stenosis. L4-5: Fused at this level. Bilateral hypertrophic facet arthropathy. Ligamentum flavum thickening. No spinal canal stenosis. Mild proximal bilateral neural foraminal stenosis. L5-S1: Fused at this level. Bilateral hypertrophic facet arthropathy.No spinal canal stenosis. No neural foraminal stenosis. LUMBAR OTHER: No other significant finding. SACRUM: Visualized upper sacrum intact. SOFT TISSUES: Allowing for motion artifact, no overt evidence of acute abnormality. OTHER: Sarcopenia manifested as variably robust fatty atrophy of the visualized musculature. IMPRESSION: 1. Constellation of spondylolisthesis, spondylosis, and degenerativedisc disease of the cervical spine as detailed level by level above. 2. 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 THIS IS AN ELECTRONICALLY VERIFIED FINAL REPORT 06/13/2024 10:55 AM - Electronically signed by Diego Rose M.D. KANDY: KANDY Report ID: [id number] Reading Location: [id number] us Santos Patterson MD IMG MRI PROCEDURES Final Re sult * Screening Mammogram Bilateral W Christian (08/09/2023 9:25 AM CDT) Anatomical Region Laterality Modality Breast Bilateral Mammography 08/09/2023 9:53 AM CDT Impressions 08/09/2023 9:53 AM CDT There is no mammographic evidence of malignancy. A 1 year screening mammogram is recommended. BI-RADS: 1 - Negative. The patient has been or will be contacted. The patient will be entered into a reminder system with a target due date of 1 year for her next mammogram. Electronically signed by: Dania Shay M.D. Narrative 08/09/2023 9:53 AM CDT EXAMINATION: SCREENING MAMMOGRAM BILATERAL W [facility] ORDERING HEALTHCARE PROVIDER: MEG TONG HISTORY: Routine screening mammography. COMPARISON: 07/01/2022, 06/30/2021, 42,[id number], 04/12/2019 TECHNIQUE: CC and MLO views of the bilateral breasts were obtained with digital technique using breast tomosynthesis with C view. Computer aided detection was utilized. FINDINGS: DENSITY: The tissue of the bilateral breasts is heterogeneously dense, which may obscure small masses. BREASTS: There are no suspicious masses, suspicious calcifications, or other suspicious findings in either breast. There has been no suspicious interval change. us Meg Tong MOHS SURGEON IMG MAMMO PROCEDURES Final Resul t * Dexa Axial Skeleton Bone Density 1 Or 2 Site (07/03/2022 9:11 AM CDT) Anatomical Region Laterality Modality Body N/A Other 07/03/2022 8:46 PM CDT Narrative 07/03/2022 8:49 PM CDT EXAM DESCRIPTION: DEXA AXIAL SKELETON BONE DENSITY 1 OR MORE SITES REASON FOR STUDY: 71 y/o year old F with given history of screening. 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 Right HIP: Total BMD is 0.692 g/cm2 T-score is -2.0 Dissimilar scan types or analysis methods precludes assessment for calculating a significant change. Femoral neck BMD is 0.520 g/cm2 T-score is -3.0 FRAX: FRAX not reported due to T-scores of hip, femoral neck and/or spine being at or below -2.5 (Osteoporosis). IMPRESSION: Osteoporosis. REFERENCE: Bone mineral density: Normal (T-score above or [...] including treatment recommendations, please refer to the 2019 ISCD Official Positions (http://www.iscd.org) and the NOF's Clinician's Guide to Prevention and Treatment of Osteoporosis (http://www.nof.org/professionals/clinical-guidelines) THIS IS AN ELECTRONICALLY VERIFIED FINAL REPORT 07/03/2022 8:49 PM - Electronically signed by Federico Enrique M.D. MF: [email or web address] Report ID: [id number] Reading Location: [place] [id number] Procedure Note Federico Enrique MD - 07/03/2022 EXAM DESCRIPTION: DEXA AXIAL SKELETON BONE DENSITY 1 OR MORE SITES REASON FOR STUDY: 71 y/o year old F with given history of screening. 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 Right HIP: Total BMD is 0.692 g/cm2 T-score is -2.0 Dissimilar scan types or analysis methods precludes assessment for calculating a significant change. Femoral neck BMD is 0.520 g/cm2 T-score is -3.0 FRAX: FRAX not reported due to T-scores of hip, femoral neck and/or spine beingat or below -2.5 (Osteoporosis). IMPRESSION: Osteoporosis. REFERENCE: Bone mineral density: Normal (T-score above or = -1.0) Low bone mass (T-score between -1.0 and -2.5) replaces thepreviously used term osteopenia Osteoporosis (T-score = or below -2.5) Medical evaluation for secondary causes of low bone mineral density may be appropriate. FRAX is a World Health Organization validated fracture risk assessmenttool that calculates a person's 10 year probability of a major osteoporosisrelated fracture and hip fracture. According to the National OsteoporosisFoundation guidelines, postmenopausal women and men age 50 or older with low bonemass and a 10 year probability of a major osteoporosis related fracture = or greater than 20% or a 10 year probability of a hip fracture = or greaterthan 3% should be considered for treatment. For further information, including treatment recommendations, please referto the 2019 ISCD Official Positions (http://www.iscd.org) and the NOF's Clinician's Guide to Prevention and Treatment of Osteoporosis (http://www.nof.org/professionals/clinical-guidelines) THIS IS AN ELECTRONICALLY VERIFIED FINAL REPORT 07/03/2022 8:49 PM - Electronically signed by Federico Enrique M.D. MF: [email or web address] Report ID: [id number] Reading Location: [place] [address] us Mallika Garcia MD IMG DXA PROCEDURES Final Result * Colonoscopy (12/11/2018) Anatomical Region Laterality Modality Other us Padmini Irby MOHS SURGEON ENDOSCOPY PROCEDURES Final R esult * Serum Hepatitis C ab (03/28/2016 10:53 AM RECEIVABLE EXECUTIVE) HCV ab Negative Negative CDR HISTOR ICAL RESULTS Serum 03/28/2016 10:5 3 AM RECEIVABLE EXECUTIVE Cindy Conway MOHS SURGEON LAB BLOOD ORDERABLES Final Result CDR HISTORICAL RESULTS from Last 3 Months or Most Recently Relevant to Health Maintenance Insurance MEDICARE Modusly LIFE MEDICARE FOR LIFE MEDICARE FOR LIFE Member Subscriber Plan / Payer (Ef fective 2016-Present) Name:Shannon Amaya Relation to Subscriber:Spouse Name:Blair Amaya Date of :1951 (Home) Address: [address] [place] [address] Payer ID:[id number] (NAIC) Group ID:Not on file Type: Address: [place] [phone] Care Teams Director Apparel Relationship Specialty Start Date End Date No, Physician PCP - General 07/21/24 Gagandeep Youngblood MD Consulting Physician Nephrology 10/26/17 [place] [id number] [address] Referring Physician Dermatology 10/26/17 [place] [id number] [address] Referring Physician Pain Management 10/26/17 [place] [id number] [address] Consulting Physician Medical Oncology 12/05/19 [place]asiel [place]án [place] [id number] [address] Consulting Physician Orthopedic Surgery 12/20/21
--- OUTSIDE RECORDS SUMMARY | 2024-08-27 10:05 | XMS_ITS | Patient Health Record ---
Author Organization [facility] Address [address] [place] [address] Care Team Providers Care Featheredger And Reducer Machine Name Role Phone Latisha Patterson Unavailable [phone] Ashly Erickson PA-C Unavailable Sierra Dale Unavailable [phone] Santos Patterson Unavailable [phone] Allergies Allergen (clinical drug ingredient) Drug/Non Drug Allergy documented on EMR Reaction Allergy Type Onset Date Status nitrofurantoin Macrodantin hives Drug Allergy Active Talwin Muscle Pain Drug Allergy Activ e erythromycin Erythromycin rash Drug Allergy A ctive Penicillin hives Drug Allergy Active Results Component Value Reference Range Notes Ubiregi Profil e Reviewed date:08/06/2024 10:18:51 AM Interpretation: Performing Lab:[facility] (CLIA#: [id number]), [address] [place] [address], Director - Gloria Morris Notes/Report: These tests were developed and their performance characteristics determined by [facility]. They have not been cleared or approved by the [place] Food and Drug Administration. Certifying Commercial Real Estate Assistant: Nancy Galicia (Remote [id number]) Analyzed at [facility] (CLIA#: [id number]) - [address] [place] [address] - Cabinet Installer: Gloria Guaman Eszopiclone/Zopiclon Akira CMP >100 >=.5 ng/mL COMPLIANT: Test result is consistent and expected with prescribed drug. Methadone Akria CMP 105 >=2 ng/mL COMPLIANT: Test result is consistent and expected with prescribed drug. Morphine Akira CMP 21 >=1 ng/mL COMPLIANT: Test result is consistent and expected with prescribed drug. Oxycodone Akira CMP 13 >=1 ng/mL COMPLIANT: Test result is consistent and expected with prescribed drug. Hydrocodone Akira CMP 216 >=1 ng/mL PRESENT: A prescription drug, not indicated as prescribed on the requisition form, was detected. 6MAM Akira Ql Cfm <2 >=2 ng/mL NONE DETECTE D 6-JEREL Akira Cfm-mCnc <10 >=10 ng/mL NONE DETE CTED 6-Acetylcodeine Akira Cfm-mCnc <2 >=2 ng/mL NONE DETECTED Heroin Akira Cfm-mCnc <10 >=10 ng/mL NONE DET ECTED Amphet Akira Ql Cfm <5 >=5 ng/mL NONE DETEC GENIE Amphet Akira Cfm-mCnc <20 >=20 ng/mL NONE DET ECTED MDA Akira Cfm-mCnc <20 >=20 ng/mL NONE DETECT ED Methamphet Akira Cfm-mCnc <20 >=20 ng/mL NONE DETECTED MDMA Akira Cfm-mCnc <20 >=20 ng/mL NONE DETEC GENIE Phentermine Akira Cfm-mCnc <5 >=5 ng/mL NON E DETECTED Benzodiaz Akira Ql Cfm <1 >=1 ng/mL NONE DE TECTED Flurazepam Fld Cfm-mCnc <1 >=1 ng/mL NONE DETECTED Oxazepam Akira Cfm-mCnc <1 >=1 ng/mL NONE D ETECTED Alpraz Akira Cfm-mCnc <1 >=1 ng/mL NONE DET ECTED Lorazepam Akira Cfm-mCnc <1 >=1 ng/mL NONE DETECTED 7Aminoclonazepam Akira Cfm-mCnc <1 >=1 ng/mL NONE DETECTED Clonazepam Akira Cfm-mCnc <1 >=1 ng/mL NONE DETECTED Temazepam Akira Cfm-mCnc <1 >=1 ng/mL NONE DETECTED Diazepam Akira Cfm-mCnc <1 >=1 ng/mL NONE D ETECTED Nordiazepam Akira Cfm-mCnc <2 >=2 ng/mL NON E DETECTED Buprenorphine Akira Ql Cfm <2 >=2 ng/mL NON E DETECTED Cocaine Akira Ql Cfm <4 >=4 ng/mL NONE DETE CTED BZE Akira-mCnc <4 >=4 ng/mL NONE DETECTED Cocaine Akira Cfm-mCnc <4 >=4 ng/mL NONE DE TECTED Fentanyl Analogues Akira Ql Cfm <1 >=1 ng/mL NONE DETECTED Norfentanyl Akira Cfm-mCnc <1 >=1 ng/mL NON E DETECTED Fentanyl Akira Cfm-mCnc <1 >=1 ng/mL NONE D ETECTED Carisoprodol+Meprob Akira Ql Cfm <10 >=10 ng/mL NONE DETECTED Meprobamate Akira Cfm-mCnc <10 >=10 ng/mL NON E DETECTED Carisoprodol Akira Cfm-mCnc <10 >=10 ng/mL NO NE DETECTED Methadone Akira Ql Cfm >=2 >=2 ng/mL POSITIV E EDDP Akira Cfm-mCnc <5 >=5 ng/mL NONE DETEC GENIE Methadone Akira Cfm-mCnc 105 >=2 ng/mL POSIT PASCUAL Opiates Akira Ql Cfm >=1 >=1 ng/mL POSITIVE Codeine Akira Cfm-mCnc <1 >=1 ng/mL NONE DE TECTED Morphine Akira Cfm-mCnc 21 >=1 ng/mL POSITI VE DHC Akira Cfm-mCnc 29 >=1 ng/mL POSITIVE Hydrocodone Akira Cfm-mCnc 177 >=1 ng/mL POS ITIVE Norhydrocodone Akira Cfm-mCnc 10 >=1 ng/mL POSITIVE Hydromorphone Akira Cfm-mCnc <1 >=1 ng/mL N ONE DETECTED Oxycodone Akira Cfm-mCnc 13 >=1 ng/mL POSIT PASCUAL Oxymorphone Akira Cfm-mCnc <1 >=1 ng/mL NON E DETECTED Norcodeine Akira Cfm-mCnc <1 >=1 ng/mL NONE DETECTED Noroxycodone Akira Cfm-mCnc <1 >=1 ng/mL NO NE DETECTED Tramadol Akira Ql Cfm <20 >=20 ng/mL NONE DET ECTED N-Desmethyl Tramadol Akira-mCnc <20 >=20 ng/mL NONE DETECTED Tramadol Akira Cfm-mCnc <20 >=20 ng/mL NONE D ETECTED O-Desmethyl Tramadol Akira-mCnc <20 >=20 ng/mL NONE DETECTED Cannabinoids Akira Ql Scn <2 >=2 ng/mL NONE DETECTED Sedative Hypnotics ( >=0.5 >=0.5 ng/mL POSITIV E Eszopiclone/Zopiclon Akira-mCnc >100 >=0.5 ng/mL POSITIVE Social Security Specialist Benzodiazepines Akira Ql Cfm <1 >=1 ng/mL NONE DETECTED Social Security Specialist Opioids Akira Ql Cfm <1 >=1 ng/mL NONE DETECTED Synthetic Cannabinoids Akira Ql Cfm <1 >=1 ng/ mL NONE DETECTED Synthetic Stimulants Akira Ql Cfm <1 >=1 ng/mL NONE DETECTED Hallucinogens/Dissociatives Akira Ql Cfm <1 >=1 ng/mL NONE DETECTED PRODUCT SAFETY SPECIALIST Not Otherwise Specified Akira Ql Cfm <1 >=1 ng/mL NONE DETECTED Ethanol Akira Ql Scn <5 >=5 mg/dL NONE DETE CTED Ubiregi Profil e Reviewed date:01/28/2024 01:28:00 PM Interpretation: Performing Lab:[facility] (CLIA#: [id number]), [address] [place] [address], Director - Gloria Morris Notes/Report: These tests were developed and their performance characteristics determined by [facility]. They have not been cleared or approved by the [place] Food and Drug Administration. Certifying Commercial Real Estate Assistant: Nirmal Mahmood (Remote [id number]) Analyzed at [facility] (CLIA#: [id number]) - [address] [place] [address] - Cabinet Installer: Gloria Guaman Buspirone Compliance <0.5 >=.5 ng/mL NON-COM PLIANT: Test result indicates patient may not be taking drug prescribed. Eszopiclone/Zopiclon Akira CMP 39 >=.5 ng/mL COMPLIANT: Test result is consistent and expected with prescribed drug. Oxycodone Akira CMP 581 >=1 ng/mL COMPLIANT: Test result is consistent and expected with prescribed drug. 6MAM Akira Ql Cfm <2 >=2 ng/mL NONE DETECTE D 6-JEREL Akira Cfm-mCnc <10 >=10 ng/mL NONE DETE CTED 6-Acetylcodeine Akira Cfm-mCnc <2 >=2 ng/mL NONE DETECTED Heroin Akira Cfm-mCnc <10 >=10 ng/mL NONE DET ECTED Amphet Akira Ql Cfm <5 >=5 ng/mL NONE DETEC GENIE Amphet Akira Cfm-mCnc <20 >=20 ng/mL NONE DET ECTED MDA Akira Cfm-mCnc <20 >=20 ng/mL NONE DETECT ED Methamphet Akira Cfm-mCnc <20 >=20 ng/mL NONE DETECTED MDMA Akira Cfm-mCnc <20 >=20 ng/mL NONE DETEC GENIE Phentermine Akira Cfm-mCnc <5 >=5 ng/mL NON E DETECTED Benzodiaz Akira Ql Cfm <1 >=1 ng/mL NONE DE TECTED Flurazepam Fld Cfm-mCnc <1 >=1 ng/mL NONE DETECTED Oxazepam Akira Cfm-mCnc <1 >=1 ng/mL NONE D ETECTED Alpraz Akira Cfm-mCnc <1 >=1 ng/mL NONE DET ECTED Lorazepam Akira Cfm-mCnc <1 >=1 ng/mL NONE DETECTED 7Aminoclonazepam Akira Cfm-mCnc <1 >=1 ng/mL NONE DETECTED Clonazepam Akira Cfm-mCnc <1 >=1 ng/mL NONE DETECTED Temazepam Akira Cfm-mCnc <1 >=1 ng/mL NONE DETECTED Diazepam Akira Cfm-mCnc <1 >=1 ng/mL NONE D ETECTED Nordiazepam Akira Cfm-mCnc <2 >=2 ng/mL NON E DETECTED Buprenorphine Akira Ql Cfm <2 >=2 ng/mL NON E DETECTED Cocaine Akira Ql Cfm <4 >=4 ng/mL NONE DETE CTED BZE Akira-mCnc <4 >=4 ng/mL NONE DETECTED Cocaine Akira Cfm-mCnc <4 >=4 ng/mL NONE DE TECTED Fentanyl Analogues Akira Ql Cfm <1 >=1 ng/mL NONE DETECTED Norfentanyl Akira Cfm-mCnc <1 >=1 ng/mL NON E DETECTED Fentanyl Akira Cfm-mCnc <1 >=1 ng/mL NONE D ETECTED Carisoprodol+Meprob Akira Ql Cfm <10 >=10 ng/mL NONE DETECTED Meprobamate Akira Cfm-mCnc <10 >=10 ng/mL NON E DETECTED Carisoprodol Akira Cfm-mCnc <10 >=10 ng/mL NO NE DETECTED Methadone Akira Ql Cfm <2 >=2 ng/mL NONE DE TECTED EDDP Akira Cfm-mCnc <5 >=5 ng/mL NONE DETEC GENIE Methadone Akira Cfm-mCnc <2 >=2 ng/mL NONE DETECTED Opiates Akira Ql Cfm >=1 >=1 ng/mL POSITIVE Codeine Akira Cfm-mCnc <1 >=1 ng/mL NONE DE TECTED Morphine Akira Cfm-mCnc <1 >=1 ng/mL NONE D ETECTED DHC Akira Cfm-mCnc <1 >=1 ng/mL NONE DETECT ED Hydrocodone Akira Cfm-mCnc <1 >=1 ng/mL NON E DETECTED Norhydrocodone Akira Cfm-mCnc <1 >=1 ng/mL NONE DETECTED Hydromorphone Akira Cfm-mCnc <1 >=1 ng/mL N ONE DETECTED Oxycodone Akira Cfm-mCnc 438 >=1 ng/mL POSIT PASCUAL Oxymorphone Akira Cfm-mCnc <1 >=1 ng/mL NON E DETECTED Norcodeine Akira Cfm-mCnc <1 >=1 ng/mL NONE DETECTED Noroxycodone Akira Cfm-mCnc 142 >=1 ng/mL PO SITIVE Tramadol Akira Ql Cfm <20 >=20 ng/mL NONE DET ECTED N-Desmethyl Tramadol Akira-mCnc <20 >=20 ng/mL NONE DETECTED Tramadol Akira Cfm-mCnc <20 >=20 ng/mL NONE D ETECTED O-Desmethyl Tramadol Akira-mCnc <20 >=20 ng/mL NONE DETECTED Cannabinoids Akira Ql Scn <2 >=2 ng/mL NONE DETECTED Sedative Hypnotics ( >=0.5 >=0.5 ng/mL POSITIV E Eszopiclone/Zopiclon Akira-mCnc 39 >=0.5 ng/mL POSITIVE Buspirone (Akira) <0.5 >=0.5 ng/mL NONE DETECTE D Social Security Specialist Benzodiazepines Akira Ql Cfm <1 >=1 ng/mL NONE DETECTED Social Security Specialist Opioids Akira Ql Cfm <1 >=1 ng/mL NONE DETECTED Synthetic Cannabinoids Akira Ql Cfm <1 >=1 ng/ mL NONE DETECTED Synthetic Stimulants Akira Ql Cfm <1 >=1 ng/mL NONE DETECTED Hallucinogens/Dissociatives Akira Ql Cfm <1 >=1 ng/mL NONE DETECTED PRODUCT SAFETY SPECIALIST Not Otherwise Specified Akira Ql Cfm <1 >=1 ng/mL NONE DETECTED Ethanol Akira Ql Scn <5 >=5 mg/dL NONE DETE CTED X ray : Knee, right Reviewed date:11/20/2023 03:13:24 PM Interpretation: Performing Lab: Notes/Report: X ray : Shoulder, right Reviewed date:11/20/2023 03:13:44 PM Interpretation: Performing Lab: Notes/Report: X ray : Knee, left 2 views Reviewed date:11/20/2023 03:13:34 PM Interpretation: Performing Lab: Notes/Report: Reason For Referral No Information Medications Medication SIG (Take, Route, Frequency, Duration) Notes Start Date End Date Status Morphine Sulfate 15 MG 0.5 tablet as needed Orally three times a day; Duration: 30 days spoke to a tech that said there was only #30, please fill what you have 07/17/2024 Active Methadone HCl 10 MG 1 tablet Orally every 6 hour; Duration: 30 days 06/19/2024 Active Cyclobenzaprine HCl 5 MG 1 tablet Oral twice a day; Duration: 30 days As needed Active Eszopiclone 3 MG TAKE 1 TABLET at night; Duration: 30 days 08/25/2024 Active oxyCODONE-Acetaminophen 10-325 MG 1 tablet Oral every 6 hrs; Duration: 30 days DO NOT FILL UNTIL 06/27/24 06/09/2024 Active oxyCODONE HCl 10 MG 1 tablet as needed Orally every 6 hrs; Duration: 30 days 07/31/2024 Active Ondansetron HCl 8 MG 1 tablet Oral twice a day; Duration: 7 days Active DULoxetine HCl 30 MG 1 capsule Orally in the morning; Duration: 30 days 07/31/2024 Active Premarin 0.9 MG Oral; Duration: 90 Days Active Lisinopril 40 MG Oral; Duration: 90 Days Active Social History Tobacco Use: Social History Observation Description Date Details (start date - stop date) Former Smoker NA - NA Tobacco Control (Standard) Question Answer Notes Tobacco use: Former smoker How long has it been since you last smoked? Grea ter than 10 years Problems Problem Type SNOMED Code ICD Code Onset Dates Problem Status W/U Status Risk Notes Problem Chronic pain (90759269) Other chronic pain (G89.29) Active confirmed Problem Post-laminectomy syndrome (20838406) Postlaminectomy syndrome, not elsewhere classified (M96.1) Active confirmed Problem Long-term current use of drug therapy (574811757) Other group home (current) drug therapy (Z79.899) Active confirmed Problem Old healed fracture of bone (959225322) Personal history of (healed) traumatic fracture (Z87.81) Active confirmed Problem Cervical spondylosis (736022866) Cervical spondylosis (M47.812) Active confirmed Problem Lumbar spondylosis (836608735) Lumbar spondylosis (M47.816) Active confirmed Problem Lumbar pain (496747171) Lumbar pain (M54.50) Active confirmed Problem Lumbar radiculopathy (743557636) Lumbar radiculopathy (M54.16) Active confirmed Problem Lumbar post-laminectomy syndrome (868703483) Lumbar postlaminectomy syndrome (M96.1) Active confirmed Problem Displacement of lumbar intervertebral disc without myelopathy (26502279) 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) Active confirmed Problem Cervical radiculopathy (23525136) Cervical radiculopathy (M54.12) Active confirmed Problem Pain in thoracic spine (226766791) Thoracic spine pain (M54.6) Active confirmed Problem Neck pain (31503104) Cervical spine pain (M54.2) Active confirmed Problem Hypertension (51326116) Hypertension (I10) 06/12/18 91 Active confirmed Vital Signs Heart Rate 106 /min 07/31/2024 Respiratory Rate 18 /min 06/19/2024 Blood pressure diastolic 71 mm Hg 07/31/2024 Height-cm 165.1 cm 07/31/2024 Weight-kg 50.8 kg 07/31/2024 Height 5ft 5in in 07/31/2024 Blood pressure systolic 194 mm Hg 07/31/2024 Weight 112 lbs 07/31/2024 BMI 18.64 kg/m2 07/31/2024 Encounters Encounter Location Date Provider Diagnosis [facility] [address] [place] [address] 09/18/2023 Ashly Buttstrevor Postlaminectomy syndrome, not elsewhere classified M96.1 ; Lumbar pain M54.50 ; Thoracic spine pain M54.6 ; Personal history of (healed) traumatic fracture Z87.81 and Other director long term care (current) drug therapy Z79.899 [facility] [address] [place] [address] [address] [place] [address] 10/23/2023 Ashly Marstall Postlaminectomy syndrome, not elsewhere classified M96.1 ; Lumbar pain M54.50 ; Thoracic spine pain M54.6 ; Personal history of (healed) traumatic fracture Z87.81 and Other group home (current) drug therapy Z79.899 [facility] [address] [place] [address] 11/20/2023 Ashly Marstall Postlaminectomy syndrome, not elsewhere classified M96.1 ; Lumbar pain M54.50 ; Thoracic spine pain M54.6 ; Personal history of (healed) traumatic fracture Z87.81 ; Other group home (current) drug therapy Z79.899 ; Other chronic pain G89.29 ; Pain in right knee M25.561 ; Pain in left knee M25.562 and Pain in right shoulder M25.511 [facility] [address] [place] [address] 12/18/2023 Ashly Marstall Postlaminectomy syndrome, not elsewhere classified M96.1 ; Lumbar pain M54.50 ; Thoracic spine pain M54.6 ; Personal history of (healed) traumatic fracture Z87.81 ; Other group home (current) drug therapy Z79.899 and Other chronic pain G89.29 [facility] [address] [place] [address] 01/21/2024 Sierra Dale Postlaminectomy syndrome, not elsewhere classified M96.1 ; Lumbar pain M54.50 ; Thoracic spine pain M54.6 ; Personal history of (healed) traumatic fracture Z87.81 and Other director long term care (current) drug therapy Z79.899 Telehealth [facility] [address] [place] [address] [address] [place] [address] 02/18/2024 Ashly Marstall Pain in right shoulder M25.511 ; Low back pain M54.50 ; Left hip pain M25.552 and Encounter for medication management Z79.899 [facility] [address] [place] [address] [address] [place] [address] 03/17/2024 Ashly Marstall Postlaminectomy syndrome, not elsewhere classified M96.1 ; Lumbar pain M54.50 ; Thoracic spine pain M54.6 ; Personal history of (healed) traumatic fracture Z87.81 ; Other director long term care (current) drug therapy Z79.899 and Other chronic pain G89.29 [facility] [address] [place] [address] 04/14/2024 Ashly Marstall Postlaminectomy syndrome, not elsewhere classified M96.1 ; Lumbar pain M54.50 ; Thoracic spine pain M54.6 ; Personal history of (healed) traumatic fracture Z87.81 ; Other group home (current) drug therapy Z79.899 and Other chronic pain G89.29 [facility] [address] [place] [address] 05/12/2024 Ashly Marstall Postlaminectomy syndrome, not elsewhere classified M96.1 ; Lumbar pain M54.50 ; Thoracic spine pain M54.6 ; Personal history of (healed) traumatic fracture Z87.81 ; Other group home (current) drug therapy Z79.899 and Other chronic pain G89.29 [facility] [address] [place] [address] 06/09/2024 Ashly Marstall Postlaminectomy syndrome, not elsewhere classified M96.1 ; Lumbar pain M54.50 ; Thoracic spine pain M54.6 ; Other group home (current) drug therapy Z79.899 ; Personal history of (healed) traumatic fracture Z87.81 ; Other chronic pain G89.29 and Cervical spondylolysis M43.02 [facility] [address] [place] [address] 06/19/2024 Santos Patterson Postlaminectomy syndrome, not elsewhere classified M96.1 ; Lumbar pain M54.50 ; Thoracic spine pain M54.6 ; Personal history of (healed) traumatic fracture Z87.81 ; Other director long term care (current) drug therapy Z79.899 ; Other chronic pain G89.29 ; Lumbar radiculopathy M54.16 ; Lumbar postlaminectomy syndrome M96.1 ; Lumbar spine pain M54.50 ; Pain of lumbar facet joint M54.59 ; Lumbar spondylosis M47.816 ; Displacement of intervertebral disc of lumbar spine without radiculopathy M51.26 ; Left hip pain M25.552 ; Pain in left hip M25.552 ; Hypertension I10 ; Cervical spine pain M54.2 ; Cervical spondylosis M47.812 ; Cervical radiculopathy M54.12 ; rn long term care use of opioid Z79.891 and Iron deficiency anemia D50.9 [facility] [address] [place] [address] [address] [place] [address] 06/19/2024 Latisha Patterson Lumbar radiculopathy M54.16 and S/P lumbar fusion Z98.1 [facility] [address] [place] [address] [address] [place] [address] 07/17/2024 Ashly Marstall Postlaminectomy syndrome, not elsewhere classified M96.1 ; Lumbar pain M54.50 ; Thoracic spine pain M54.6 ; Personal history of (healed) traumatic fracture Z87.81 ; Other group home (current) drug therapy Z79.899 ; Other chronic pain G89.29 ; Hypertension I10 ; Lumbar radiculopathy M54.16 ; Lumbar postlaminectomy syndrome M96.1 ; Lumbar spondylosis M47.816 ; Displacement of intervertebral disc of lumbar spine without radiculopathy M51.26 ; Cervical spine pain M54.2 ; Cervical spondylosis M47.812 and Cervical radiculopathy M54.12 [facility] [address] [place] [address] [address] [place] [address] 07/31/2024 Ashly Marstall Postlaminectomy syndrome, not elsewhere classified M96.1 ; Lumbar pain M54.50 ; Thoracic spine pain M54.6 ; Personal history of (healed) traumatic fracture Z87.81 ; Other director long term care (current) drug therapy Z79.899 ; Other chronic pain G89.29 ; Hypertension I10 ; Lumbar radiculopathy M54.16 ; Lumbar postlaminectomy syndrome M96.1 ; Lumbar spondylosis M47.816 ; Displacement of intervertebral disc of lumbar spine without radiculopathy M51.26 ; Cervical spine pain M54.2 ; Cervical spondylosis M47.812 and Cervical radiculopathy M54.12 [facility] [address] [place] [address] 09/18/2023 Santos Yesenia [facility] [address] [place] [address] 09/18/2023 Santos Yesenia [facility] [address] [place] [address] 10/23/2023 Santos Yesenia [facility] [address] [place] [address] 10/23/2023 Santos Yesenia [facility] [address] [facility] [address] [place] [address] 11/20/2023 Santos Yesenia [facility] [address] [place] [address] 11/29/2023 Santos Yesenia [facility] [address] [place] [address] 12/18/2023 Santos Yesenia Postlaminectomy syndrome, not elsewhere classified M96.1 [facility] [address] [place] [address] 01/21/2024 Latisha Yesenia Postlaminectomy syndrome, not elsewhere classified M96.1 [facility] [address] [place] [address] 02/18/2024 Latisha Yesenia Postlaminectomy syndrome, not elsewhere classified M96.1 [facility] [address] [place] [address] 03/17/2024 Latisha Yesenia [facility] [address] [place] [address] 04/14/2024 Latisha Yesenia [facility] [address] [place] [address] 04/28/2024 Latisha Yesenia Postlaminectomy syndrome, not elsewhere classified M96.1 [facility] [address] [place] [address] 05/12/2024 Latisha Yesenia Postlaminectomy syndrome, not elsewhere classified M96.1 [facility] [address] [place] [address] 06/09/2024 Latisha Yesenia [facility] [address] [place] [address] 06/19/2024 Santos Yesenia [facility] [address] [place] [address] 07/17/2024 Santos Yesenia [facility] [address] [place] [address] 07/17/2024 Santos Yesenia [facility] [address] [place] [address] 07/31/2024 Santos Yesenia [facility] [address] [place] [address] 07/31/2024 Santos Yesenia [facility] [address] [place] [address] 08/11/2024 Ashly Marstall [facility] [address] [place] [address] 08/25/2024 Santos Yesenia Postlaminectomy syndrome, not elsewhere classified M96.1 Assessments Encounter Date Diagnosis (ICD Code) Assessment Notes Treatment Notes Treatment Clinical Notes Section Notes 09/18/2023 Postlaminectomy syndrome, not elsewhere classified (ICD-10 - M96.1) Percocet Rx sent to supervising physician for renewal taper down a tablet this month 09/18/2023 Lumbar pain (ICD-10 - M54.50) 10/23/2023 Postlaminectomy syndrome, not elsewhere classified (ICD-10 - M96.1) percocet rx sent to supervising physician for renewal taper to four a day today can schedule evaluation for interventional tx or start PT 11/20/2023 Postlaminectomy syndrome, not elsewhere classified (ICD-10 - M96.1) percocet refill sent to supervising physician for renewal 12/18/2023 Postlaminectomy syndrome, not elsewhere classified (ICD-10 - M96.1) opioid RX sent to supervising physician for renewal 12/18/2023 Postlaminectomy syndrome, not elsewhere classified (ICD-10 - M96.1) 01/21/2024 Postlaminectomy syndrome, not elsewhere classified (ICD-10 - M96.1) Refill for controlled substance sent to supervising physician to be filled cyclobenzaprine refill sent to pharmacy Continue home stretching and at home exercise program as tolerated Follow-up in one month for med check, sooner if needed 01/21/2024 Lumbar pain (ICD-10 - M54.50) 01/21/2024 Postlaminectomy syndrome, not elsewhere classified (ICD-10 - M96.1) 02/18/2024 Postlaminectomy syndrome, not elsewhere classified (ICD-10 - M96.1) 02/18/2024 Pain in right shoulder (ICD-10 - M25.511) 02/18/2024 Low back pain (ICD-10 - M54.50) 03/17/2024 Postlaminectomy syndrome, not elsewhere classified (ICD-10 - M96.1) Prescription for controlled substance sent to supervising physician for renewal 04/14/2024 Postlaminectomy syndrome, not elsewhere classified (ICD-10 - M96.1) Prescription for controlled substance sent to supervising physician for renewal 04/28/2024 Postlaminectomy syndrome, not elsewhere classified (ICD-10 - M96.1) 05/12/2024 Postlaminectomy syndrome, not elsewhere classified (ICD-10 - M96.1) Prescription for controlled substance sent to supervising physician for renewal 05/12/2024 Postlaminectomy syndrome, not elsewhere classified (ICD-10 - M96.1) 06/09/2024 Postlaminectomy syndrome, not elsewhere classified (ICD-10 - M96.1) Lumbar MRI w/o contrast Cervical MRI w/o contrast : orders faxed to [facility]. 06/09/2024 Lumbar pain (ICD-10 - M54.50) 06/19/2024 Lumbar radiculopathy (ICD-10 - M54.16) 06/19/2024 Postlaminectomy syndrome, not elsewhere classified (ICD-10 - M96.1) 07/17/2024 Postlaminectomy syndrome, not elsewhere classified (ICD-10 - M96.1) Prescription for controlled substance sent to supervising physician for renewal 07/31/2024 Postlaminectomy syndrome, not elsewhere classified (ICD-10 - M96.1) Prescription for controlled substance sent to supervising physician for renewal 08/25/2024 Postlaminectomy syndrome, not elsewhere classified (ICD-10 - M96.1) 07/31/2024 Lumbar pain (ICD-10 - M54.50) 07/17/2024 Lumbar pain (ICD-10 - M54.50) 06/19/2024 Lumbar pain (ICD-10 - M54.50) 06/19/2024 S/P lumbar fusion (ICD-10 - Z98.1) 06/09/2024 Thoracic spine pain (ICD-10 - M54.6) 05/12/2024 Lumbar pain (ICD-10 - M54.50) 04/14/2024 Lumbar pain (ICD-10 - M54.50) 03/17/2024 Lumbar pain (ICD-10 - M54.50) 02/18/2024 Left hip pain (ICD-10 - M25.552) 01/21/2024 Thoracic spine pain (ICD-10 - M54.6) 12/18/2023 Lumbar pain (ICD-10 - M54.50) 11/20/2023 Lumbar pain (ICD-10 - M54.50) 10/23/2023 Lumbar pain (ICD-10 - M54.50) 09/18/2023 Thoracic spine pain (ICD-10 - M54.6) 09/18/2023 Personal history of (healed) traumatic fracture (ICD-10 - Z87.81) 10/23/2023 Thoracic spine pain (ICD-10 - M54.6) 11/20/2023 Thoracic spine pain (ICD-10 - M54.6) 12/18/2023 Thoracic spine pain (ICD-10 - M54.6) 01/21/2024 Personal history of (healed) traumatic fracture (ICD-10 - Z87.81) 02/18/2024 Encounter for medication management (ICD-10 - Z79.899) 03/17/2024 Thoracic spine pain (ICD-10 - M54.6) 04/14/2024 Thoracic spine pain (ICD-10 - M54.6) 05/12/2024 Thoracic spine pain (ICD-10 - M54.6) 06/09/2024 Other director long term care (current) drug therapy (ICD-10 - Z79.899) 06/19/2024 Thoracic spine pain (ICD-10 - M54.6) 07/17/2024 Thoracic spine pain (ICD-10 - M54.6) 07/31/2024 Thoracic spine pain (ICD-10 - M54.6) 07/31/2024 Personal history of (healed) traumatic fracture (ICD-10 - Z87.81) 07/17/2024 Personal history of (healed) traumatic fracture (ICD-10 - Z87.81) 06/19/2024 Personal history of (healed) traumatic fracture (ICD-10 - Z87.81) 06/09/2024 Personal history of (healed) traumatic fracture (ICD-10 - Z87.81) 05/12/2024 Personal history of (healed) traumatic fracture (ICD-10 - Z87.81) 04/14/2024 Personal history of (healed) traumatic fracture (ICD-10 - Z87.81) 03/17/2024 Personal history of (healed) traumatic fracture (ICD-10 - Z87.81) 01/21/2024 Other group home (current) drug therapy (ICD-10 - Z79.899) 12/18/2023 Personal history of (healed) traumatic fracture (ICD-10 - Z87.81) 11/20/2023 Personal history of (healed) traumatic fracture (ICD-10 - Z87.81) 10/23/2023 Personal history of (healed) traumatic fracture (ICD-10 - Z87.81) 09/18/2023 Other group home (current) drug therapy (ICD-10 - Z79.899) 10/23/2023 Other director long term care (current) drug therapy (ICD-10 - Z79.899) 11/20/2023 Other group home (current) drug therapy (ICD-10 - Z79.899) 12/18/2023 Other director long term care (current) drug therapy (ICD-10 - Z79.899) 03/17/2024 Other director long term care (current) drug therapy (ICD-10 - Z79.899) 04/14/2024 Other director long term care (current) drug therapy (ICD-10 - Z79.899) 05/12/2024 Other director long term care (current) drug therapy (ICD-10 - Z79.899) 06/09/2024 Other chronic pain (ICD-10 - G89.29) 06/19/2024 Other director long term care (current) drug therapy (ICD-10 - Z79.899) 07/17/2024 Other director long term care (current) drug therapy (ICD-10 - Z79.899) 07/31/2024 Other group home (current) drug therapy (ICD-10 - Z79.899) 07/31/2024 Other chronic pain (ICD-10 - G89.29) 07/17/2024 Other chronic pain (ICD-10 - G89.29) 06/19/2024 Other chronic pain (ICD-10 - G89.29) 06/09/2024 Cervical spondylolysis (ICD-10 - M43.02) 05/12/2024 Other chronic pain (ICD-10 - G89.29) 04/14/2024 Other chronic pain (ICD-10 - G89.29) 03/17/2024 Other chronic pain (ICD-10 - G89.29) 12/18/2023 Other chronic pain (ICD-10 - G89.29) 11/20/2023 Other chronic pain (ICD-10 - G89.29) 11/20/2023 Pain in right knee (ICD-10 - M25.561) 06/19/2024 Lumbar radiculopathy (ICD-10 - M54.16) 07/17/2024 Hypertension (ICD-10 - I10) 07/31/2024 Hypertension (ICD-10 - I10) 07/31/2024 Lumbar radiculopathy (ICD-10 - M54.16) 07/17/2024 Lumbar radiculopathy (ICD-10 - M54.16) 06/19/2024 Lumbar postlaminectomy syndrome (ICD-10 - M96.1) 11/20/2023 Pain in left knee (ICD-10 - M25.562) 11/20/2023 Pain in right shoulder (ICD-10 - M25.511) 06/19/2024 Lumbar spine pain (ICD-10 - M54.50) 07/17/2024 Lumbar postlaminectomy syndrome (ICD-10 - M96.1) 07/31/2024 Lumbar postlaminectomy syndrome (ICD-10 - M96.1) 07/31/2024 Lumbar spondylosis (ICD-10 - M47.816) 07/17/2024 Lumbar spondylosis (ICD-10 - M47.816) 06/19/2024 Pain of lumbar facet joint (ICD-10 - M54.59) 06/19/2024 Lumbar spondylosis (ICD-10 - M47.816) 07/17/2024 Displacement of intervertebral disc of lumbar spine without radiculopathy (ICD-10 - M51.26) 07/31/2024 Displacement of intervertebral disc of lumbar spine without radiculopathy (ICD-10 - M51.26) 07/31/2024 Cervical spine pain (ICD-10 - M54.2) 07/17/2024 Cervical spine pain (ICD-10 - M54.2) 06/19/2024 Displacement of intervertebral disc of lumbar spine without radiculopathy (ICD-10 - M51.26) 06/19/2024 Left hip pain (ICD-10 - M25.552) 07/17/2024 Cervical spondylosis (ICD-10 - M47.812) 07/31/2024 Cervical spondylosis (ICD-10 - M47.812) 07/31/2024 Cervical radiculopathy (ICD-10 - M54.12) 07/17/2024 Cervical radiculopathy (ICD-10 - M54.12) 06/19/2024 Pain in left hip (ICD-10 - M25.552) 06/19/2024 Hypertension (ICD-10 - I10) 06/19/2024 Cervical spine pain (ICD-10 - M54.2) 06/19/2024 Cervical spondylosis (ICD-10 - M47.812) 06/19/2024 Cervical radiculopathy (ICD-10 - M54.12) 06/19/2024 rn long term care use of opioid (ICD-10 - Z79.891) 06/19/2024 Iron deficiency anemia (ICD-10 - D50.9) 11/20/2023 Other High Blood Pressure: Care Instructions material was published R shoulder 3v- no fracture, no dislocation , no tumor or mass. AC joint narrowing. no tumor, mass. GH degeneration. B knee xray: moderate medial compartment OA/DJD. B patellar chondrosis. no fx, no tumor or mass. 12/18/2023 Other High Blood Pressure: Care Instructions material was published 01/21/2024 Other High Blood Pressure: Care Instructions material was published 03/17/2024 Other High Blood Pressure: Care Instructions material was published, Body Mass Index: Care Instructions material was published 04/14/2024 Other Body Mass Index : Care Instructions material was published, High Blood Pressure: Care Instructions material was published 06/09/2024 Other High Blood Pressure: Care Instructions material was published, Learning About How to Have a Healthy Back material was published 4v weightbearing lumbar: hardware intact. surgical clips RUQ. T8,9 with artifact at this level from patients rings. hyperlordosis. ASSISTED L4/5, L5/S1. retrolisthesis L2 on L3 that worsens slightly with extension. loss of disc height L3/4 when compared to 2019 xrays. no tumor, mass or fracture. 2v cervical: cervical tilts down on the right. forward head carriage. loss of disc height, spondylosis advanced C5,6,7. retrolisthesis C3 on C4 and C4 on C5 that worsens with extension.anteri or spurring C6, C7. no tumor, mass or fracture. 06/19/2024 Other High Blood Pressure: Care Instructions material was published Medical records reviewed include twelve-lead EKG that was obtained today. QTc is 423 QTc is 429 ms. We will hold on the methadone currently. Patient has a first-degree AV block as well. Patient has MRI scan of the lumbar spine and cervical spine. Cervical spine shows minimal stairstep retrolisthesis of C3 on C4 C4 and C5 and variable minimal stair anterolisthesis C7 on T1 and T1 on T2 and T2 on T3. Patient has a posterior disc osteophyte at C3-C4. This is indenting the ventral thecal sac. There is bilateral uncovertebral joint disease. There is bilateral hypertrophic facet arthropathy. At the C4-5 level there is a posterior disc osteophyte indenting the ventral thecal sac. There is again facet and uncovertebral joint hypertrophy. At C5-C6 there is a posterior disc osteophyte indenting the ventral thecal sac. Once again there is hypertrophy of the facets and uncovertebral joints. There is mild to moderate spinal canal stenosis. There is bilateral neuroforaminal stenosis with slight contact of the exiting bilateral C6 nerve roots. At C6-7 there is a posterior disc osteophyte complex indenting the ventral thecal sac. There is bilateral hypertrophic facet arthropathy mild stenosis. C7-T1 normal. Lumbar spine MRI scan also from June 13, 2024 is reviewed. There is an anterior spinal fusion L4-L5 L5-S1. L1-L2 is normal. L2-L3 shows an annular disc bulge with some slight fluid in the facet joints. L3-4 shows an annular disc bulge with a shallow right subarticular disc protrusion. There is bilateral facet arthropathy and fluid in the facet joints. There is compromise of right more than left lateral recesses descending bilateral L4 nerve roots are Contacted. Patient's fusion at L4-5 appears solid. Patient is fused at L5-S1. No tumor metastases or fractures are seen. Patient has sarcopenia as manifested by variable robust fatty atrophy of the visualized musculature. 07/31/2024 Other Body Mass Index : Care Instructions material was published, High Blood Pressure: Care Instructions material was published Plan Of Treatment Pending Test Test Name Order Date X ray : Spines, cervical 4 views 025 X ray : Spines, lumbar 4 views 5 PainComp Oral Fluid, D/L 01/21/2024 PainComp Oral Fluid, D/L 07/31/2024 Ethanol Oral Fluids 07/31/2024 Ethanol Oral Fluids 01/21/2024 Marijuana - Oral Fluid 01/21/2024 Marijuana - Oral Fluid 07/31/2024 Hallucinogens/Dissociatives OF Hallucinogens/Dissociatives OF PRODUCT SAFETY SPECIALIST Other Oral Fluids 01/21/2024 PRODUCT SAFETY SPECIALIST Other Oral Fluids 07/31/2024 Synthetic Stimulants OF 07/31/2024 Synthetic Stimulants OF 01/21/2024 Social Security Specialist Benzodiazepines OF 01/21/2024 Social Security Specialist Benzodiazepines OF 07/31/2024 Synthetic Cannabinoids OF 07/31/2024 Synthetic Cannabinoids OF 01/21/2024 Social Security Specialist Opioids Oral Fluids 01/21/2024 Social Security Specialist Opioids Oral Fluids 07/31/2024 PainComp Medication Compliance - Saliva 01/21/2024 PainComp Medication Compliance - Saliva 07/31/2024 [facility] Required Information 01/21/2024 [facility] Required Information 07/31/2024 Next Appt Details Provider Name:Santos Molina Moira moe, 08/28/2024 09:45:00 AM, [address] [facility], [address], [place], [address], Insurance Providers Payer Name Payer Address Payer Phone Subscriber Number Group Number Insured Name Patient Relationship to Insured Coverage Start Date Coverage End Date [employer] [place] J5 [address] [address] [place] [address] [phone] [id number] Nina Amaya Self - patient is the insured for Life [address] [place] [address] [id number] Nina Amaya Self - patient is the insured Medications Administered Medication Instructions Date of Administration Dosage Notes Lumb / Sacro Interlaminar Epidural 06/19/2024 L3-4 LES Medical (General) History Medical History History ICD Code iron deficiency anemia VItamin D deficiency OAB hypertension PMO Surgical History Surgery Date(Month/Year) Lumbar fusion L4-S1 left hip fracture w/pinning and revision left glute medius repair 2021 cholecystectomy juodenojunostomy Hospitalization History Reason Date(Month/Year) no hospitalization since last visit
--- OUTSIDE RECORDS SUMMARY | 2024-08-27 10:05 | XMS_ITS | Referral Summary ---
Author Organization [facility] Address [address] [place] [address] Care Team Providers Care Third Cook Name Role Phone Gagandeep Youngblood MD Unavailable [phone] Giuliana Power MD Unavailable [phone] Santos Patterson MD Unavailable Scott Esqueda MD Unavailable [phone] Arielle Greenwood MD, Jasiel Johns Unavailable [phone] No, Physician Primary Care Provider [phone] Encounters Date Type Department Care Team Description 07/24/2024 2:35 PM CDT - 07/24/2024 11:59 PM CDT Hospital Encounter [facility] [address] [place] [address] Dizziness and giddiness; Fracture in accidental fall Discharge Disposition: Discharge to home or self care 07/21/2024 10:26 AM CDT - 07/21/2024 12:09 PM CDT Emergency [facility] Emergency Department [address] [place] [address] Kapil Velazco MD Fall, initial encounter (Primary Dx); Contusion of back, unspecified laterality, initial encounter Discharge Disposition: Discharge to home or self care 06/19/2024 12:36 PM CDT - 06/19/2024 11:59 PM CDT Hospital Encounter [facility] Cardiology [address] [place] [address] Abnormal electrocardiogram (ECG) (EKG) Discharge Disposition: Discharge to home or self care 06/13/2024 7:31 AM CDT - 06/13/2024 11:59 PM CDT Hospital Encounter [facility] [address] [place] [address] Cervicalgia; Radiculopathy, cervical region Discharge Disposition: Discharge to home or self care 06/13/2024 7:31 AM CDT - 06/13/2024 11:59 PM CDT Hospital Encounter [facility] [address] [place] [address] Traumatic rhabdomyolysis, sequela Discharge Disposition: Discharge to home or self care from Last 3 Months Allergies Active Allergy Reactions Criticality Noted Date [...] Space applications every 3 hours. 15 g 3 04/04/19 25 Active dilTIAZem CD/XR/XT (CARDIZEM CD,DILACOR XR) 120 mg 24 hr capsuleIndications :Benign hypertension with CKD (chronic kidney disease) stage III (HCC),Essential hypertension Take 1 capsule (120 mg total) by mouth daily 90 capsule 3 04/04/19 25 026 Active estrogens, conjugated, (PREMARIN) 0.9 mg tablet Take 1 tablet (0.9 mg total) by mouth daily 90 tablet 3 04/04/19 25 026 Active lisinopriL (PRINIVIL,ZESTRIL) 40 mg tablet Take 1 tablet (40 mg total) by mouth daily 90 tablet 3 04/04/19 25 Active ondansetron ODT (ZOFRAN-ODT) 8 mg disintegrating tabletIndications: Nausea Take 1 tablet (8 mg total) by mouth every 8 (eight) hours as needed for nausea or vomiting 20 tablet 3 04/04/19 25 Active rizatriptan (Maxalt) 10 mg tablet Take 1 tablet po at the onset of a migraine. May repeat after 2 hours. Do NOT exceed 30 mg in 24 hours. Limit to less than 10 doses monthly. 20 tablet 11 04/04/19 25 Active cyclobenzaprine (FLEXERIL) 5 mg [...] 03/12/2024 Assessment & Plan (03/12/2024 9:08 AM SANITARY LANDFILL OPERATOR): Nasal saline spray (Simply saline, [place]ed[place], [place], [place]) 2 second sprays or 2 squeezes into [...] 09/13/2022 Assessment & Plan (03/13/2023 11:38 AM SANITARY LANDFILL OPERATOR): Avoid ear cleaning techniques Hearing test, imaging [...] 01/15 Assessment & Plan (04/16/2020 8:19 AM SANITARY LANDFILL OPERATOR): Continue regular follow up with orthopedic surgery. Biceps tendinitis of right upper extremity 01/15 Impingement syndrome of right shoulder 0 FDC (current) use of opiate analgesic 10/13 Insomnia secondary to chronic pain 10/23/2019 Chronic bilateral low back pain without sciatica 10/23/2019 Chronic pain of both shoulders 10/23/2019 Multiple joint pain 10/23/2019 History of kidney stones 10/07/2019 Urinary urgency 10/07/2019 Assessment & Plan (06/20/2023 5:10 PM CDT): Discontinued oxybutynin 5 mg and started mirabegron ER 25 mg Assessment & Plan (12/20/2022 4:50 PM SANITARY LANDFILL OPERATOR): Oxybutynin 5 mg Assessment & Plan (10/07/2019 [...] 09/05/2018 Assessment & Plan (12/20/2022 4:44 PM SANITARY LANDFILL OPERATOR): PHQ Screening PHQ-2 Total Score (If total score is 3 or more points, staff should administer the PHQ-9): 1 Assessment & Plan (10/19/2020 10:36 AM CDT): Did not start BuSpar. Taking trazodone p.r.n. for sleep. Assessment & Plan (04/16/2020 8:37 AM SANITARY LANDFILL OPERATOR): See plan for anxiety. Star buspar 5 [...] today Assessment & Plan (01/06/2019 8:51 PM SANITARY LANDFILL OPERATOR): Discussed importance of follow-up with endocrinology. I recommended that she follow up with Dr. Caraballo as she already has an established relationship and this is likely contributing to her weight loss. She declines and states that she is going to find another hog operator but does not know the physician's name. Assessment & Plan (09/05/2018 9:48 AM CDT): Discussed importance of lab work as previously ordered by her hog operator. Assessment & Plan (08/12/2018 5:11 PM CDT): [...] 08/12/2018 Assessment & Plan (04/16/2020 8:37 AM SANITARY LANDFILL OPERATOR): Needs endocrinology follow up. Assessment & Plan [...] me. 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 Patient's anxiety has increased. Patient states she was on Xanax many years ago. Patient refuses to see psychiatry. Assessment & Plan (04/16/2020 8:18 AM SANITARY LANDFILL OPERATOR): Discussed ways to relieve stress. Discussed starting buspar 5 mg TID. She is not willing to try SSRI or SNRI, even though I feel that she would really benefit from one. She wants short acting medication, but I will not prescribe her benzodiazepines. They are not a good treatment for anxiety retirement and she is also on chronic opioid [...] suicidal. Assessment & Plan (02/20/2018 8:51 PM SANITARY LANDFILL OPERATOR): -Discussed ways to relieve stress. -Declined psychology [...] injection Assessment & Plan (04/16/2020 8:15 AM SANITARY LANDFILL OPERATOR): Patient having every 2 week hemoglobin and hematocrit check and getting and Aranesp injections p.r.n. With nephrology Assessment & Plan (11/07/2018 4:28 PM CDT): Patient having every 2 week hemoglobin and hematocrit check and getting and Aranesp injections p.r.n. With nephrology Assessment & Plan (02/20/2018 8:46 PM SANITARY LANDFILL OPERATOR): Continue care with Dr. Youngblood. Vitamin D deficiency 07/03/2017 Assessment & Plan (10/19/2020 10:36 AM CDT): Will check vitamin-D level today. Continue vitamin D3 27891 units once weekly Assessment & Plan (04/16/2020 8:39 AM SANITARY LANDFILL OPERATOR): Continue vitamin d supplementation. Vitamin d level ordered today. Assessment & Plan (11/07/2018 4:31 PM CDT): Reordered vitamin-D supplementation Assessment & Plan (06/14/2018 11:15 AM CDT): Vitamin D 05/2018 66 Recommend continue vitamin D3 60334 IU once weekly. Repeat annually. Assessment & Plan (02/20/2018 8:45 PM SANITARY LANDFILL OPERATOR): Last vitamin D level 07/03/17 elevated at [...] 02/23/2017 Assessment & Plan (04/16/2020 8:38 AM SANITARY LANDFILL OPERATOR): Vitamin b12 was ordered today Assessment & Plan (01/06/2019 8:49 PM SANITARY LANDFILL OPERATOR): Vitamin b12 was ordered today, patient declined labs. Chronic left hip pain 02/01/2017 Assessment & Plan (08/30/2021 1:13 PM CDT): -completed clearance form for upcoming left hip surgery Assessment & Plan (02/25/2017 3:09 PM SANITARY LANDFILL OPERATOR): Has upcoming appt with specialist-regarding surgical intervention. Stage 3a chronic kidney disease 11/23/2016 Assessment & Plan (12/20/2022 4:43 PM SANITARY LANDFILL OPERATOR): Last eGFR 57 Assessment & Plan (08/30/2021 1:15 PM CDT): -continue current treatment per nephrology Assessment & Plan (10/19/2020 10:35 AM CDT): Continue follow up with Dr. Youngblood. Avoid NSAIDS. Assessment & Plan (04/16/2020 8:35 AM SANITARY LANDFILL OPERATOR): Continue follow up with Dr. Youngblood. Avoid NSAIDS. Assessment & Plan (01/06/2019 8:50 PM SANITARY LANDFILL OPERATOR): Continue follow up with Dr. Youngblood. Assessment & Plan (02/20/2018 8:43 PM SANITARY LANDFILL OPERATOR): Renal condition is stable. Continue current treatment regimen. Continue current medications. continue regular follow up with Dr. Youngblood Renal condition will be reassessed in 6 months. Assessment & Plan (11/26/2016 11:35 AM CDT): Renal condition is newly diagnosed. Reviewed numbers with pt. . Continue current treatment regimen. Renal condition will be reassessed - plan to refer to [employer] Drying Machine Operator. Benign hypertension with CKD (chronic kidney disease) stage III 09/15/2016 Overview (09/15/2016): Hypertension Assessment & Plan (04/08/2024 7:16 AM SANITARY LANDFILL OPERATOR): BP Readings from Last 3 Encounters: 04/07/24 169/78 12/25/23 (!) 174/78 09/10/23 151/77 Amlodipine 10 mg, atenolol 100 mg, clonidine 0.1 mg, lisinopril 40 mg Assessment & Plan (12/20/2022 4:49 PM SANITARY LANDFILL OPERATOR): Patient states her BP at home has [...] mg Assessment & Plan (03/22/2022 10:26 AM SANITARY LANDFILL OPERATOR): -amlodipine 10 mg, atenolol 25 mg, HCTZ [...] appointment. Assessment & Plan (04/16/2020 8:40 AM SANITARY LANDFILL OPERATOR): Hypertension is improving with treatment. Continue current treatment regimen recommended taking medication daily. [place] [facility] to make sure her medication is there with refills- sent a year's supply 10/05/2020. Deferred further management to her governor assembler hydraulic considering she is normotensive today. Dietary sodium [...] appointment. Assessment & Plan (02/20/2018 8:41 PM SANITARY LANDFILL OPERATOR): - continue lisinopril 40 mg daily and [...] appointment. Assessment & Plan (02/25/2017 3:08 PM SANITARY LANDFILL OPERATOR): Hypertension is controlled. Has seen Dr. Rand. [...] bone specialist recommended. She will see her hog operator first. Repeat PTH normal. She will start [...] 2022. Assessment & Plan (12/20/2022 4:43 PM SANITARY LANDFILL OPERATOR): Ca with Vitamin D Weight bearing exercises Assessment & Plan (04/16/2020 8:38 AM SANITARY LANDFILL OPERATOR): Awaiting dental clearance prior to starting Prolia. [...] Vitamin D level 66 on vitamin d3 00791 IU weekly. Goal is to get 1200 [...] Vitamin D level 66 on vitamin d3 32668 IU weekly. Goal is to get 1200 mg elemental calcium per day in dietary sources and supplements combined Will check BMP, calcium, phosphorus, PTH, and vitamin D 10 days after first injection. Repeat DEXA in 2019 Assessment & Plan (02/20/2018 8:42 PM SANITARY LANDFILL OPERATOR): Continue calcium and vitamin D. Considering declining renal function patient is good candidate for Prolia injections. Discussed risks and benefits of medication. She is agreeable to start medication. Will check BMP, calcium, phosphorus, PTH, and vitamin D 10 days after first injection. Repeat DEXA in 2019 Assessment & Plan (07/03/2017 10:59 AM CDT): Was on Reclast-2017 tolerated well. Calcium with Vitamin D Assessment [...] 02/25/2016 Assessment & Plan (04/16/2020 8:19 AM SANITARY LANDFILL OPERATOR): Continue regular follow up with pain management [...] 04/28/2019 Assessment & Plan (01/06/2019 8:51 PM SANITARY LANDFILL OPERATOR): Patient is actively losing weight. Discussed importance [...] her intake or meet with a registered dental assistant. I would like to see her back [...] weight. Assessment & Plan (02/20/2018 8:44 PM SANITARY LANDFILL OPERATOR): Weight stable today. Encouraged high caloric intake. Migraine 11/26/2016 01/06/2019 Assessment & Plan (02/20/2018 8:44 PM SANITARY LANDFILL OPERATOR): Headaches are fairly well controlled. Continue Maxalt [...] visit. Assessment & Plan (04/16/2020 8:19 AM SANITARY LANDFILL OPERATOR): Weight remains stable. Discussed importance of caloric intake. Assessment & Plan (10/07/2019 8:48 AM CDT): Weight remains stable. Discussed importance of caloric intake. Assessment & Plan (01/06/2019 8:50 PM SANITARY LANDFILL OPERATOR): Discussed importance of caloric intake. Assessment & Plan (11/07/2018 4:28 PM CDT): Weight is down 3 lb. Recommended proper caloric intake. Assessment & Plan (07/08/2017 11:10 PM CDT): Weight down 4 lbs. BMI below normal range. Addressed importance of proper caloric intake. Assessment & Plan (05/20/2017 9:51 AM CDT): Weight down 6 lbs. Assessment & Plan (02/25/2017 3:06 PM SANITARY LANDFILL OPERATOR): BMI low. Weight stable since last Ov. Pt aware of importance of diet-proper caloric intake. Assessment & Plan (11/26/2016 11:39 AM CDT): BMI low but has been stable over years. Pt aware of importance with proper caloric intake. Preop general physical exam 11/23/2016 03/22/2022 Assessment & Plan (04/16/2020 8:36 AM SANITARY LANDFILL OPERATOR): -Discussed recommendations for exercise at least 30 [...] profile. Assessment & Plan (02/25/2017 3:07 PM SANITARY LANDFILL OPERATOR): Will continue to monitor. Assessment & Plan (11/26/2016 11:36 AM CDT): Addressed relationship with CKD. Will monitor. Iliotibial band syndrome of left side 08/18/2016 01/06/2019 Abdominal pain 08/19/2012 06/14/2018 Right upper quadrant abdominal pain 04/19/2011 06/14/2018 Hyperthyroidism 08/12/2018 Assessment & Plan (06/14/2018 11:13 AM CDT): Continue methimazole. Will refer to our endocrinology team today. Immunizations Immunization Administration Dates Next Due H1N1 Inj Preservative Free 05/30/2011 Influenza, Unspecified 09/13/2023(Deferr ed: Patient Refused),09/13/2023(Deferred: Patient Refused),09/12/2022,12/20/2021(Deferred: Patient Refused),11/16/2021,02/01/2021(Deferred: Patient Refused),03/15/2018(Deferred: Patient Refused),11/12/2017(Deferred: Patient Refused),10/26/2017(Deferred: Patient Refused) Pneumococcal Conjugate PCV 13 08/12/2016 Pneumococcal Polysaccharide PPV23 10/06/2019,02/2012 ZOSTER LIVE 02/13/2012 ZOSTER Recombinant 06/18/2018,06/07/2018, 018 Zoster, unspecified 11/15/2017 Social History Tobacco Use Types Packs/Day Years [...] on file Legal Sex Female 1:16 AM SANITARY LANDFILL OPERATOR Gender Identity Not on file Sexual [...] 07/21/2024 10:01 AM CDT Plan of Treatment Not on file Goals Goal Patient Goal Type Associated Problems Recent Progress Patient-Stated? Author -[facility] Rayne Torres, RN Note: Patient will establish a comfort-function [...] HEPATITIS C AB Routine 03/28/2016 10:53 AM SANITARY LANDFILL OPERATOR from Last 3 Months or Most Recently [...] Persistent metopic suture. ORBITS: No acute abnormality. [place] ocular lenses replaced bilaterally. PARANASAL SINUSES AND [...] Diego Rose M.D. KANDY: KANDY Report ID: [id number] Reading Location: [id number] Procedure Note Diego Rose MD - 07/25/2024 [...] with ADC map sequences. Additional sequence(s) sensitive toblood products. Images stored on PACS. COMPARISON: Relevant [...] Persistent metopic suture. ORBITS: No acute abnormality. [place] ocular lenses replaced bilaterally. PARANASAL SINUSES AND [...] Diego Rose M.D. KANDY: KANDY Report ID: [id number] Reading Location: [place] [address] us Ashly KELSEY IM MRI PROCEDURES Fin al Result * eGFR [...] MD LAB BLOOD ORDERABLES Final R esult [facility] ([place]) 1 [facility] [place] [address] * Differential, auto (07/21/2024 11:04 AM CDT) Neutrophil abs 4.79 1.50 - 6.50 K/cumm Imm gran abs 0.02 0.00 - 0.10 K/cumm [facility] ([place]) Lymphocyte abs 1.55 0.80 - 3.30 K/cumm [facility] ([place]) Monocyte abs 0.61 0.20 - 0.80 K/cumm [facility] ([place]) Eosinophil abs 0.07 0.00 - 0.50 K/cumm [facility] ([place]) Basophil abs 0.04 0.00 - 0.10 K/cumm [facility] ([place]) Neutrophil pct 67.6 % [facility] ([place]) Comment: Interpretive Data Percent cell count reference ranges are not reported, since discordance with absolute values may lead to misinterpretation of CBC data. Current Interpretive Data was last revised on 2017. Imm gran pct 0.3 % [facility] ([place]) Comment: Interpretive Data Percent cell count reference ranges are not reported, since discordance with absolute values may lead to misinterpretation of CBC data. Current Interpretive Data was last revised on 2017. Lymphocyte pct 21.9 % [facility] ([place]) Comment: Interpretive Data Percent cell count reference ranges are not reported, since discordance with absolute values may lead to misinterpretation of CBC data. Current Interpretive Data was last revised on 2017. Monocyte pct 8.6 % [facility] ([place]) Comment: Interpretive Data Percent cell count reference ranges are not reported, since discordance with absolute values may lead to misinterpretation of CBC data. Current Interpretive Data was last revised on 2017. Eosinophil pct 1.0 % [facility] ([place]) Comment: Interpretive Data Percent cell count reference ranges are not reported, since discordance with absolute values may lead to misinterpretation of CBC data. Current Interpretive Data was last revised on 2017. Basophil pct 0.6 % [facility] ([place]) Comment: Interpretive Data Percent cell count reference ranges are not reported, since discordance with absolute values may lead to misinterpretation of CBC data. Current Interpretive Data was last revised on 2017. Blood 07/21/2024 11:0 4 AM CDT 07/21/2024 11:10 AM CDT us Kapil Velazco MD LAB BLOOD ORDERABLES Final R esult [facility] ([place]) 1 [facility] [place] [address] * (ABNORMAL) CBC with auto differential (07/21/2024 11:04 AM CDT) WBC 7.08 3.80 - 9.90 K/cumm Hgb 12.2 11.9 - 15.5 g/dL [facility] ([place]) Hct 38.2 35.6 - 45.5 % [facility] ([place]) Plt 251 150 - 400 K/cumm [facility] ([place]) MPV 10.1 9.1 - 12.3 fL [facility] ([place]) RBC 4.11 3.90 - 5.20 M/cumm [facility] ([place]) MCV 92.9 81.3 - 96.4 fL [facility] ([place]) MCH 29.7 27.1 - 33.3 pg [facility] ([place]) MCHC 31.9(L) 32.3 - 35.7 g/dL [facility] ([place]) RDW CV 12.1 11.1 - 14.9 % [facility] ([place]) RDW SD 41.9 35.7 - 48.1 fL [facility] ([place]) NRBC abs 0.00 0.00 - 0.01 K/cumm [facility] Blood 07/21/2024 11:0 4 AM CDT 07/21/2024 11:10 AM CDT Kapil Velazco MD LAB BLOOD ORDERABLES Final R esult [facility] ([place]) 1 [facility] [place] [address] * (ABNORMAL) Basic metabolic panel (07/21/2024 11:04 AM CDT) Sodium 139 135 - 145 mmol/L Potassium, pl 5.3(H) 3.3 - 4.9 mmol/L [facility] ([place]) Chloride 102 97 - 110 mmol/L [facility] ([place]) CO2 24 22 - 32 mmol/L [facility] ([place] Anion gap 13 2 - 15 mmol/L [facility] ([place] BUN 13 6 - 25 mg/dL [facility] ([place]) Creatinine 0.94 0.60 - 1.10 mg/dL [facility] ([place]) Glucose 110 70 - 199 mg/dL [facility] ([place] Comment: Interpretive Data Fasting glucose [...] 2022. Calcium 9.7 8.5 - 10.3 mg/dL [facility] ([place]) Blood 07/21/2024 11:0 4 AM CDT 07/21/2024 11:10 AM CDT us Kapil Velazco MD LAB BLOOD ORDERABLES Final R esult [facility] ([place]) 1 [facility] [place] [address] * XR Spine Lumbar Complete 4 Or [...] Finesse Mendoza M.D. NS: NS Report ID: [id number] Reading Location: [id number] Procedure Note Finesse Mendoza MD - 07/21/2024 [...] Finesse Mendoza M.D. NS: NS Report ID: [id number] Reading Location: [id number] us Maribel Fam MD IMG XR PROCEDURES [...] Finesse Mendoza M.D. NS: NS Report ID: [id number] Reading Location: [id number] Procedure Note Finesse Mendoza MD - 07/21/2024 [...] Finesse Mendoza M.D. NS: NS Report ID: [id number] Reading Location: [place] [address] Maribel Fam MD IMG XR PROCEDURES F inal Result * ECG 12 lead (06/19/2024 1:36 PM CDT) 06/19/2024 1:10 PM CDT Narrative [facility] - 06/19/2024 2:36 PM CDT Vent Rate: 62 bpm RR Interval: 954 msec KS Interval: 226 msec QRS Duration: 76 msec QT Interval: 423 msec QTC Interval: 429 msec P-R-T [facility]: 73 - 10 - 41 degrees IMPRESSION: SINUS RHYTHM WITH FIRST DEGREE AV BLOCK ABNORMAL ECG No change from prior EKG Electronically Signed By: Jacques Ash MD Santos Patterson MD ECG ORDERABLES Final Resul t [facility] [employer] [facility] [email or web address]] * MRI Lumbar Spine WO Contrast (06/13/2024 [...] diffuse disc bulge or focal herniation. Bilateral, jchq-ueuejam-tsbg-right, hypertrophic facet arthropathy. No spinal canal stenosis. [...] suggestive of facet synovitis. Compromise of the tbpbp-tfpfrgk-meqe-left lateral recesses, noting combination of disc and [...] Diego Rose M.D. KANDY: KANDY Report ID: [id number] Reading Location: [place] [address] Procedure Note Diego Rose MD - 06/13/2024 [...] diffuse disc bulge or focal herniation. Bilateral, ejxo-hgkjvhb-bcuj-right, hypertrophic facet arthropathy. No spinal canal stenosis. [...] suggestive of facet synovitis. Compromise of the kxuyd-oyzuskj-tnac-left lateral recesses, noting combination of disc and [...] Diego Rose M.D. KANDY: KANDY Report ID: [id number] Reading Location: [id number] us Santos Patterson MD IMG MRI PROCEDURES [...] diffuse disc bulge or focal herniation. Bilateral, mqxr-ajmdkus-iope-right, hypertrophic facet arthropathy. No spinal canal stenosis. [...] suggestive of facet synovitis. Compromise of the nrqoq-mqjxufh-tdrh-left lateral recesses, noting combination of disc and [...] Diego Rose M.D. KANDY: KANDY Report ID: [id number] Reading Location: [place] [address] Procedure Note Diego Rose MD - 06/13/2024 [...] diffuse disc bulge or focal herniation. Bilateral, zgnn-sgiutsd-huxn-right, hypertrophic facet arthropathy. No spinal canal stenosis. [...] suggestive of facet synovitis. Compromise of the wajdr-oayozgi-omwr-left lateral recesses, noting combination of disc and [...] Diego Rose M.D. KANDY: KANDY Report ID: [id number] Reading Location: [id number] Santos Patterson MD IMG MRI PROCEDURES Final [...] no suspicious interval change. us Meg Tong NP IMG MAMMO PROCEDURES Final Resul t * Dexa Axial Skeleton Bone Density 1 Or 2 Site (07/03/2022 9:11 AM CDT) Anatomical Region Laterality Modality Body N/A Other 07/03/2022 8:46 PM CDT Narrative 07/03/2022 8:49 PM CDT EXAM DESCRIPTION: DEXA AXIAL SKELETON BONE DENSITY 1 OR MORE SITES REASON FOR STUDY: 71 y/o year old F with given history of screening. 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 MF: TATIANA Report ID: [id number] Reading Location: [place] [address] Procedure Note Federico Enrique MD - 07/03/2022 EXAM DESCRIPTION: DEXA AXIAL SKELETON BONE DENSITY 1 OR MORE SITES REASON FOR STUDY: 71 y/o year old F with given history of screening. Postmenopausal Storage Garage Manager/Model: [employer] (S/N [id number]) CLINICAL INFORMATION: Current height: 65 inches Maximum [...] Federico Enrique M.D. MF: TATIANA Report ID: [id number] Reading Location: [id number] us Mallika Garcia MD IMG DXA PROCEDURES Final Result * Colonoscopy (12/11/2018) Anatomical Region Laterality Modality Other us Padmini Irby NP ENDOSCOPY PROCEDURES Final R esult * Serum Hepatitis C ab (03/28/2016 10:53 AM SANITARY LANDFILL OPERATOR) HCV ab Negative Negative CDR HISTOR ICAL RESULTS Serum 03/28/2016 10:5 3 AM SANITARY LANDFILL OPERATOR us Cindy Conway MERCHANT MILL UTILITY WORKER LAB BLOOD ORDERABLES Final Result CDR HISTORICAL RESULTS from Last 3 Months or Most Recently Relevant to Health Maintenance Insurance MEDICARE [employer] [id number] [place] [address] MEDICARE [facility] MEDICARE FOR LIFE Care Teams Third Cook Relationship Specialty Start Date End Date No, Physician PCP - General 07/21/24 Gagandeep Youngblood MD Consulting Physician Nephrology 10/26/17 [place] [id number] [place] [id number] Referring Physician Dermatology 10/26/17 [place] [id number] [address] Referring Physician Pain Management 10/26/17 [place] [id number] [address] Consulting Physician Medical Oncology 12/05/19 [place] [id number] [place] [id number] Consulting Physician Orthopedic Surgery 12/20/21
--- OUTSIDE RECORDS SUMMARY | 2024-08-27 10:11 | XMS_ITS | Continuity of Care Document ---
Author Organization [facility] Address [address] [place] [address] Phone Care Team Providers Care Account Collector Name Role Phone Kasia RANGEL MD, Marcelo Dunn Unavaila ble Advance Directives Directive Yes / No Effective Date File Name No Information Encounters Encounter Description Practice Location Reason(s) For Visit Diagnoses Date Provider Providers Copied on Encounter [facility], [address], [id number], [place] tel:[phone] [facility] No Information Kasia Carr er. [address], [place], [place], [id number] , [place]. tel: [phone] Family History Family Member Type Diagnosis Age At Onset No Information Payers Payer name Insurance type Covered green party ID Authoriza tion(s) No Information Social History [...]
--- NOTE | 2024-08-27 10:26 | ED.FEMALEGU ---
HPI - Female Genitourinary General Chief complaint: Urogenital-Female Stated complaint: Urinary Problem Time Seen by Provider: 08/27/24 10:10 Source: patient Mode of arrival: ambulatory Limitations: no limitations History of Present Illness HPI Narrative: 73-year-old female presents with complaint of urinary symptoms for 4 days. Patient reports burning, urgency, frequency. Symptoms worse starting last evening. Woke up around 2:00 a.m. with urinary pain and took Pyridium. Afebrile. patient reports symptoms similar to previous urinary tract infections. All systems reviewed and negative except as noted above. Related Data Home Medications ?Medication ?Instructions ?Recorded ?Confirmed ?Last Taken ?Type eszopiclone 3 mg tablet 3 mg PO DAILY 10/14/20 08/27/24 Unknown History lisinopril 40 mg tablet 40 mg PO DAILY 10/14/20 08/27/24 Unknown History duloxetine 30 mg capsule,delayed mg PO 08/27/24 Unknown History release morphine 15 mg immediate release mg 08/27/24 Unknown History tablet oxycodone 10 mg tablet mg 08/27/24 Unknown History Allergies Allergy/AdvReac Type Severity Reaction Status Date / Time cephalexin Allergy Unknown Unknown Verified 03/16/24 14:38 erythromycin base Allergy Unknown Unknown Verified 03/16/24 14:38 nitrofurantoin Allergy Unknown anaphylactic Verified 03/16/24 14:38 reaction Penicillins Allergy Unknown Unknown Verified 03/16/24 14:38 pentazocine Allergy Unknown Unknown Verified 03/16/24 14:38 propoxyphene Allergy Unknown Unknown Verified 03/16/24 14:38 NICKELSULFATE Allergy Unknown Unknown Uncoded 03/16/24 14:38 Review of Systems Review of Systems: CONSTITUTIONAL: Denies fever, chills, or sweats. EYES: Denies visual changes, redness, or discharge. ENT: Denies rhinorrhea, congestion, sore throat, or otalgia. CARDIOVASCULAR: Denies chest pain, palpitations, or edema. RESPIRATORY: Denies cough or dyspnea. GASTROINTESTINAL: Denies abdominal pain, nausea, vomiting, or diarrhea. GENITOURINARY: Reports dysuria, frequency, urgency. Denies hematuria. SKIN: Denies rash or itching. MUSCULOSKELETAL: Denies back pain, joint pain, or myalgia. NEUROLOGIC: Denies headache, numbness, or weakness. PSYCHIATRIC: Denies anxiety or depression. All other systems reviewed are negative, except as documented in HPI. [facility] Past Medical History Medical History (Updated 08/27/24 @ 10:22 by Phoebe Mccloud NP) COVID-19 Osteoporosis Fracture of right ankle Hyperlipidemia Post-menopausal UTI (urinary tract infection) Hypertension Surgical History Surgical History (Updated 03/18/24 @ 17:41 by Ivanna Mc NP) History of hip surgery x4 left hip fracture Hx of cholecystectomy History of hysterectomy History of lumbar fusion Family History Family History Mother Hypertension Cerebrovascular accident Family history of coronary artery disease Grandparent Family history of malignant neoplasm of breast Father Family history of coronary artery disease Other Diabetes mellitus Family history of alcoholism Family history of anemia Family history of blood dyscrasia Family history of cardiovascular disease Family history of chronic obstructive pulmonary disease Family history of congestive heart failure Family history of osteoporosis Social History Social History Smoking status: Never smoker Second hand tobacco smoke exposure: No Alcohol intake: never Substance use: never Living arrangements: with family Gender identity (if verbalized by the patient): Female Comments At time of signature, agree with nursing past medical, surgical, social and family history. There is no relevant family history pertinent to the presenting complaint. Exam Narrative: GENERAL: This is a well-nourished, well-developed patient, in no apparent distress. HEAD: normocephalic, atraumatic. EYES: PERRL. Sclera clear/white. Vision is grossly intact. EARS: External ears normal NOSE: External nose normal NECK: Neck supple, non-tender without lymphadenopathy, masses or thyromegaly. CARDIOVASCULAR: Regular rate and rhythm without murmurs, gallops, or rubs. RESPIRATORY: Clear to auscultation. Breath sounds equal bilaterally. No wheezes, rales, or rhonchi. SKIN: warm, Dry, intact with no suspicious lesions or rash, good texture and turgor. NEURO: awake, alert, and oriented to person, place and time. There were no obvious focal neurologic abnormalities. EXTREMITIES: No joint tenderness, effusion, or edema noted. Course Course Level of Care: Express Care Visit Vital Signs Vital signs: Vital Signs Temperature 36.8 C 08/27/24 10:00 Pulse Rate 97 08/27/24 10:00 Respiratory Rate 16 08/27/24 10:00 Blood Pressure 163/79 H 08/27/24 10:00 Pulse Oximetry 97 08/27/24 10:00 Oxygen Delivery Room Air 08/27/24 10:00 Temperature 36.8 C 08/27/24 10:00 Pulse Rate 97 08/27/24 10:00 Respiratory Rate 16 08/27/24 10:00 Blood Pressure 163/79 H 08/27/24 10:00 Pulse Oximetry 97 08/27/24 10:00 Oxygen Delivery Room Air 08/27/24 10:00 reviewed MDM - Female Genitourinary MDM Narrative Medical decision making narrative: will treat patient for urinary tract infection with Cipro. Unable to complete a urine dip today due to orange urine from Pyridium. Urine culture ordered. Patient is alert, nontoxic. Okay for outpatient therapy. Differential Diagnosis Differential diagnosis: Likely urinary tract infection Discharge Plan Discharge Clinical Impression: Urinary tract infection Patient Disposition: Home Condition: Stable Instructions: Antibiotic Form, Urinary Tract Infection in Women (ED) Additional Instructions: Take antibiotic as prescribed. Continue to take Pyridium as needed for urinary symptoms. Drink at least 64 oz of water a day. See your doctor if symptoms are improving. If you have severe pain, vomiting or fever go to the ER. Patient Language: Setswana Prescriptions: New ciprofloxacin HCl 500 mg tablet 500 mg PO BID 7 Days Qty: 14 0RF phenazopyridine [Pyridium] 200 mg tablet 200 mg PO TID PRN (Reason: pain) 3 Days Qty: 10 0RF No Action lisinopril 40 mg tablet 40 mg PO DAILY eszopiclone 3 mg tablet 3 mg PO DAILY morphine 15 mg tablet duloxetine 30 mg capsule,delayed release(DR/EC) PO oxycodone 10 mg tablet Follow-up/Referrals: PHYSICIAN,[employer]SP[employer]UMNIST [Primary Care Provider] - Time of Disposition: 10:23
== END 2024-08-27 10:28 | disposition home or self-care (01) ==
PROVIDERS: Emergency Provider Nurse Practitioner Family
DX: N39.0 Urinary tract infection, site not specified (principal); E78.5 Hyperlipidemia, unspecified; I10 Essential (primary) hypertension; M81.0 Age-related osteoporosis without current pathological fracture
CPT/HCPCS: 87086; 99213; G0463